=== PATIENT | male | born 1960 | race Caucasian/White ===

== ENCOUNTER 2018-04-09 11:51 | Inpatient (IN) ==
[2018-04-09] MEDS ORDERED: IPRATROPIUM/ALBUTEROL 3 ML AMPUL.NEB NEB ONE ×2 (12:01→14:08)
[2018-04-09] MEDS ORDERED: 0.9 % SODIUM CHLORIDE 1,000 ML IV ONE ×3 (12:07→19:32)
[2018-04-09] MEDS ORDERED: predniSONE 20 MG TABLET PO ONE (12:46)
--- NOTE | 2018-04-09 12:47 | Emergency Department Note ---
SOB HPI - General Chief Complaint: Shortness of Breath/Dyspnea Stated Complaint: SOB Time Seen by Provider: 04/09/18 12:01 Source: patient Mode of arrival: ambulatory Limitations: no limitations - History of Present Illness This patient returns to the emergency room feeling short of breath. He is here yesterday wheezing and had a treatment and workup that was unremarkable. He apparently is not on any prednisone that he knows of. No recent cough. He has been given a DuoNeb treatment here and feels better. - Related Data Previous Rx's Medication Instructions Recorded Albuterol Sulfate [Ventolin] 2 puff INH Q4-6HP PRN #1 inhaler 04/08/18 Tiotropium [place] [Spiriva 2 puff INH DAILY #1 each 04/08/18 Respimat] predniSONE [Prednisone] 10 mg PO DAILY #30 tab 04/08/18 Allergies Allergy/AdvReac Type Severity Reaction Status Date / Time No Known Drug Allergies Allergy Verified 01/07/18 11:59 Review of Systems All systems ED: reviewed and negative except as stated. Past Medical History - Past Medical History Medical history: Reports: asthma, COPD, other (Hepatitis C. Subacute dyskinesia due to medication (previous pill-rolling; lipsmacking currently). Chronic use of narcotic for therapeutic use.) Psychiatric history: Reports: anxiety, depression, schizophrenia, other ( Psychotic disorder with delusions. Is on chronic antipsychotic injection every 3 weeks.) Surgical history ED: Reports: no surgical history - Social History smoking status: Former smoker Alcohol use: Reports: Unknown Drug use: Reports: none Physical Exam Limitations: no limitations General appearance: alert, in no apparent distress Head: atraumatic Eye: Present: normal appearance ENT: normal exam Neck: Present: normal inspection Chest: Present: normal inspection Respiratory: Present: normal lung sounds bilaterally Cardiovascular: Present: regular rate, normal rhythm, normal heart sounds Abdominal: Present: soft. Absent: distention, tenderness Neurological: Present: alert Psychiatric: Present: normal affect, normal mood Skin: Present: warm, dry, intact Course Vital Signs Temperature 100.1 F H 04/09/18 11:53 Pulse Rate 103 H 04/09/18 11:53 Respiratory Rate 30 H 04/09/18 11:53 Blood Pressure 115/82 04/09/18 11:53 Pulse Oximetry (%) 90 04/09/18 11:53 Temperature 100.1 F H 04/09/18 11:53 Pulse Rate 88 04/09/18 15:39 Respiratory Rate 20 04/09/18 15:39 Blood Pressure 99/70 04/09/18 15:39 Pulse Oximetry (%) 90 04/09/18 15:39 Shortness of Breath/Dyspnea - MDM Narrative Medical decision making narrative: Chest x-ray only showed severe COPD but his white count was elevated he had a slight fever lactic acid was 3.0 oxygen saturation was anywhere from mid 80s to mid 90s off oxygen we did give him 2 DuoNeb treatments and prednisone. Have not done blood cultures and will start Levaquin and Rocephin and the patient will be admitted to the hospital. - Lab Data Lab results reviewed: Yes I reviewed the patient's lab results. Result diagrams: 04/09/18 12:07 04/09/18 12:07 Lab Results 04/09/18 04/09/18 04/09/18 Range/Units 12:07 12:07 12:07 WBC 13.1 H (4.5-11.0) K/mcL RBC 4.73 (4.50-5.90) M/mcL Hgb 14.9 (13.5-16.5) g/dL Hct 45.5 (41.0-55.0) % MCV 96.1 (80.0-100.0) fL MCH 31.5 (26.0-34.0) pg MCHC 32.8 (31.0-36.0) g/dL RDW 13.1 (11.5-14.5) % Plt Count 324 (140-440) K/mcL MPV 7.7 (7.4-10.4) fL Gran % 76.2 (38.0-78.0) % Lymph % (Auto) 13.6 L (15.5-49.0) % [place] % (Auto) 9.3 (1.0-12.0) % Eos % (Auto) 0.3 (0.0-7.0) % Baso % (Auto) 0.6 (0.0-2.0) % Gran # 10.0 H (1.8-8.0) K/mcL Lymph # (Auto) 1.8 (1.5-4.8) K/mcL [place] # (Auto) 1.2 H (0.1-0.9) K/mcL Eos # (Auto) 0 (0.0-0.7) K/mcL Baso # (Auto) 0.1 (0.0-0.3) K/mcL VBG Lactic Acid 3.0 H (0.5-2.2) mmol/L Sodium 141 (133-145) mmol/L Potassium 4.1 (3.3-5.1) mmol/L Chloride 99 (96-108) mmol/L Carbon Dioxide 28 (22-30) mmol/L Anion Gap 14.0 (8-16) BUN 12 (6-20) mg/dl Creatinine 0.8 (0.7-1.2) mg/dl GFR Calculation 99 Glucose 111 H (70-105) mg/dL Calcium 10.0 (8.6-10.4) mg/dl Total Bilirubin 0.5 (0.0-1.0) mg/dL AST 15 (0-37) U/l ALT 15 (0-40) U/l Alkaline Phosphatase 81 (39-117) U/L Total Protein 7.2 (5.9-8.4) gm/dL Albumin 4.4 (3.2-5.2) gm/dL Globulin 2.8 (2.2-3.7) gm/dL Albumin/Globulin Ratio 1.6 (1.0-2.3) - Radiology Data Radiology results reviewed: Yes I reviewed the patient's radiology results. Disposition Pt seen by FORK REPAIRER/PA only: No Clinical Impression: Acute exacerbation of chronic obstructive airways disease Disposition: Xfer As Inpt ([facility]) Condition: Good Referrals: Vianney Whitehead, EVELINE, [employer]ER[employer]ING MECHANIC [Primary Care Provider] - Time of Disposition: 15:47
[2018-04-09 12:48] LABS: Basophils # (Auto) 0.1 K/mcL (0.0-0.3); Basophils % (Auto) 0.6 % (0.0-2.0); Eosinophils # (Auto) 0 K/mcL (0.0-0.7); Eosinophils % (Auto) 0.3 % (0.0-7.0); Granulocytes % (Auto) 76.2 % (38.0-78.0); Lymphocytes # (Auto) 1.8 K/mcL (1.5-4.8); Lymphocytes % (Auto) 13.6 % (15.5-49.0); Mean Cell Volume 96.1 fL (80.0-100.0); Mean Corpuscular HGB Conc 32.8 g/dL (31.0-36.0); Mean Corpuscular Hemoglobin 31.5 pg (26.0-34.0); Monocytes # (Auto) 1.2 K/mcL (0.1-0.9); Monocytes % (Auto) 9.3 % (1.0-12.0); Platelet Count 324 K/mcL (140-440); RBC 4.73 M/mcL (4.50-5.90); Red Cell Distribution Width 13.1 % (11.5-14.5)
[2018-04-09 13:12] LABS: ALT/SGPT 15 U/l (0-40); Albumin 4.4 gm/dL (3.2-5.2); Albumin/Globulin Ratio 1.6 (1.0-2.3); Alkaline Phosphatase 81 U/L (39-117); Blood Urea Nitrogen 12 mg/dl (6-20)
--- NOTE | 2018-04-09 13:59 | XRay Report ---
CLINICAL INFORMATION: Shortness of breath COMPARISON: 04/08/2018 FINDINGS: Heart size, mediastinal pulmonary vessels are normal. Severe COPD changes and scattered scarring again noted. No infiltrates or other new pulmonary abnormalities. No effusions. Bones soft tissues normal IMPRESSION: Severe COPD changes - stable Interpreted and Authenticated by: Masood Weinberg 04/09/18
[2018-04-09] MEDS ORDERED: LACTATED RINGERS 1,000 ML IV ONE (14:28)
[2018-04-09] MEDS ORDERED: LEVOFLOXACIN 750 MG/150 ML BAG IV ONE (15:44)
[2018-04-09] MEDS ORDERED: cefTRIAXone 1 GM VIAL IV ONE (15:44)
--- NOTE | 2018-04-09 16:17 | Internal Med History&Physical ---
Medical - H&P: HPI Patient information: Note initiated : 04/09/18 at 4:04 pm Service Date, if different from initiated Date: [] Patient: Shwetha Means a 57 y/o M admitted on for Shortness of breath. Chief Complaint: [] History of present illness: Mr. Means is a 57 year old M with history of chronic obstructive pulmonary disease-asthma with multiple recent visits to the emergency room presents to the ER today for shortness of breath and wheezing. According to the patient this has been going on for the last 2 days. The patient was here yesterday and was advised to be admitted to the hospital he was treated with duo nebs and steroids however the patient declined admission. The patient today again comes in with shortness of breath and according to the ED note it seems that he did not take his steroids as he was supposed to. Not sure if he picked up his prescriptions for inhalers either. The patient notes shortness of breath is worse with activity associated with wheezing. He has some cough with light sputum production. He admits to feeling tired and fatigued but denies any acute fever or chills or rigors. The patient has had history of admissions to the hospital for asthma or COPD exacerbation he notes that he has also been in the ICU in the past. In the emergency room patient had a low-grade temperature 100.1, otherwise blood pressure was stable. He had increased oxygen needs needing 2 L of oxygen to maintain his oxygen saturation more than 90, patient had elevated lactic acid at 3.0. Chemistry was fine. Chest x-ray showed severe COPD. Patient was advised admission to the hospital for further management All systems: reviewed and no additional remarkable complaints except as stated ( 10 point ROS done as per HPI rest negative) Medical - H&P: PMH Medical history: Medical History (Last Reviewed 01/14/18 @ 18:40 by Vianney Whitehead, EVELINE, [employer]) Weight loss (Acute) Tobacco use (Chronic) Subacute dyskinesia due to drug (Chronic) Psychotic disorder with delusions (Chronic) Hepatitis C (Chronic) COPD (chronic obstructive pulmonary disease) (Chronic 10/16/14) Chronic use of opiate drugs therapeutic purposes (Chronic 03/26/13) Asthma (Chronic 07/30/12) Allergic rhinitis (Chronic) Reactive airway disease (Resolved) Pertinent family history: Family History (Last Reviewed 01/14/18 @ 18:40 by Vianney Whitehead, EVELINE, [employer]) Mother Malignant neoplasm of breast Atherosclerosis of coronary artery Essential hypertension Acute myocardial infarction Medical - H&P: Meds Home Medications Medication Instructions Recorded Confirmed Type Albuterol Sulfate [Ventolin] 2 puff INH Q4-6HP PRN #1 inhaler 04/08/18 04/09/18 Rx Tiotropium [place] [Spiriva 2 puff INH DAILY #1 each 04/08/18 04/09/18 Rx Respimat] predniSONE [Prednisone] 10 mg PO DAILY #30 tab 04/08/18 04/09/18 Rx Allergies Allergy/AdvReac Type Severity Reaction Status Date / Time No Known Drug Allergies Allergy Verified 01/07/18 11:59 Medical - H&P: Exam - Constitutional Vitals: Temp Pulse Resp BP Pulse Ox 100.1 F H 88 20 99/70 90 04/09/18 11:53 04/09/18 15:39 04/09/18 15:39 04/09/18 15:39 04/09/18 15:39 Exam: GENERAL: The patient is thin poorly kept individual, not in distress, alert oriented 3. VITAL SIGNS: Reviewed and as noted elsewhere. HEENT: Head is normocephalic and atraumatic. Extraocular muscles are intact. Pupils are equal, round, and reactive to light. Nares appeared normal. Mouth appears any without lesions. Mucous membranes are dry . NECK: Normal to inspection, Supple, No lymphadenopathy or thyromegaly. LUNGS: Air entry equal on both sides, decreased air entry bilaterally, mild expiratory wheezing noted. No crackles. Patient does not show any signs of respiratory distress no accessory muscle use. Patient is able to speak full sentences. HEART: Regular rate and rhythm normal, S1 and S2 heard, no Gallop, S3 or Rub Noted, No Gross murmur heard. Distant heart sounds ABDOMEN: Soft, nontender, and nondistended. Positive bowel sounds. No hepatosplenomegaly was noted. Scaphoid abdomen EXTREMITIES: No cyanosis, mild clubbing present no rash, lesions or edema. NEUROLOGIC: Cranial nerves II through XII are grossly intact. Motor and Sensory System Grossly Intact PSYCHIATRIC: Flat affect, poorly kept individual. SKIN: No ulceration or wounds noted, No jaundice, No rash noted. Medical - H&P: Reslt - Labs CBC & Chem 7: 04/09/18 12:07 04/09/18 12:07 Labs: Short CBC 04/09/18 Range/Units 12:07 WBC 13.1 H (4.5-11.0) K/mcL Hgb 14.9 (13.5-16.5) g/dL Hct 45.5 (41.0-55.0) % Plt Count 324 (140-440) K/mcL BMP 04/09/18 12:07 Sodium 141 Potassium 4.1 Chloride 99 Carbon Dioxide 28 BUN 12 Creatinine 0.8 Glucose 111 H Calcium 10.0 Liver Function 04/09/18 Range/Units 12:07 Total Bilirubin 0.5 (0.0-1.0) mg/dL AST 15 (0-37) U/l ALT 15 (0-40) U/l Alkaline Phosphatase 81 (39-117) U/L Albumin 4.4 (3.2-5.2) gm/dL Medical - H&P: A/P - Narrative A/P Narrative: A/P Acute copd exacerbation Acute hypoxic Respiratory Failure Acute bronchitis Lactic acidosis Sepsis/ SIRS Psychiatric disorder hepatitis C Plan Admit as obs to tele IV fluids Trend lactic acid, Steroids, adn duonebs, abx coverage by levoflox continue home meds DVT hep sq Diet regular Full code. Social History - Social History caregiver/support person: Yes household members: alone housing: house lives independently: Yes marital status: single occupational status: disabled - Dietary Habits well-balanced diet: about half the time during the past year weight has: remained stable - Exercise physical activity: walking - Tobacco smoking status: Former smoker quit status: not considering quitting counseling given: provider counseling - Tobacco Type tobacco type: cigarettes - Cigarette Details per day: 4 - Alcohol alcohol intake frequency: does not drink - Substance use substance use type: does not use - Melissa/Amish melissa/holiness: Taoism - Home Safety working smoke detector in home: Yes
[2018-04-09] MEDS ORDERED: IOPAMIDOL 100 ML BOTTLE IV ONE (16:41)
[2018-04-09] MEDS ORDERED: ONDANSETRON 4 MG/2 ML VIAL IV PRN (16:46)
[2018-04-09] MEDS ORDERED: oxyCODONE/APAP 5/325MG TABLET PO PRN (16:46)
[2018-04-09] MEDS ORDERED: NALOXONE HCL 0.4 MG/ML VIAL IV PRN (16:46)
[2018-04-09] MEDS ORDERED: LEVOFLOXACIN 500 MG/100 ML BAG IV SCH (16:46)
[2018-04-09] MEDS ORDERED: ACETAMINOPHEN 325 MG TABLET PO PRN (16:46)
[2018-04-09 17:07] LABS: Appearance,Urine HAZY; Bilirubin,Urine NEG (NEG); Color,Urine YELLOW; Glucose,Urine (UA) NEGATIVE (NEG); Leukocyte Esterase,Urine NEG /uL (NEG); Protein,Urine NEG (NEG); Specific Gravity,Urine 1.024 (1.000-1.035); Urine Blood NEG mg/dL (<0.03); Urobilinogen,Urine NEG (NEG)
[2018-04-09] MEDS: 0.9 % SODIUM CHLORIDE 1,000 ML IV SCH ×2 (17:11→23:52)
[2018-04-09] MEDS: methylPREDNISolone SOD SUCC 125 MG/2 ML VIAL IV SCH ×2 (17:17→23:17)
[2018-04-09] MEDS: IPRATROPIUM/ALBUTEROL 3 ML AMPUL.NEB NEB SCH ×2 (19:27→22:44)
[2018-04-09] MEDS: FAMOTIDINE 20 MG TABLET PO SCH (20:16)
[2018-04-09] MEDS: HEPARIN 5,000 UNIT/ML VIAL SQ SCH (20:16)
[2018-04-09] MEDS: THIAMINE 100 MG in 0.9 % SODIUM CHLORIDE 50 ML IV SCH (21:04)
[2018-04-09] MEDS: 0.9 % SODIUM CHLORIDE 10 ML SYRINGE IV SCH (23:14)
[2018-04-10] MEDS: IPRATROPIUM/ALBUTEROL 3 ML AMPUL.NEB NEB SCH ×6 (03:04→23:11)
[2018-04-10] MEDS: 0.9 % SODIUM CHLORIDE 1,000 ML IV SCH ×3 (03:05→13:00)
[2018-04-10] MEDS: 0.9 % SODIUM CHLORIDE 10 ML SYRINGE IV SCH ×3 (06:01→21:58)
[2018-04-10] MEDS: methylPREDNISolone SOD SUCC 125 MG/2 ML VIAL IV SCH ×3 (06:01→22:01)
[2018-04-10 06:04] LABS: Basophils # (Auto) 0 K/mcL (0.0-0.3); Basophils % (Auto) 0 % (0.0-2.0); Eosinophils # (Auto) 0 K/mcL (0.0-0.7); Eosinophils % (Auto) 0 % (0.0-7.0); Granulocytes % (Auto) 92.1 % (38.0-78.0); Lymphocytes # (Auto) 0.5 K/mcL (1.5-4.8); Lymphocytes % (Auto) 5.9 % (15.5-49.0); Mean Cell Volume 97.8 fL (80.0-100.0); Mean Corpuscular HGB Conc 32.9 g/dL (31.0-36.0); Mean Corpuscular Hemoglobin 32.2 pg (26.0-34.0); Monocytes # (Auto) 0.2 K/mcL (0.1-0.9); Platelet Count 250 K/mcL (140-440); RBC 3.88 M/mcL (4.50-5.90); Red Cell Distribution Width 13.2 % (11.5-14.5)
--- NOTE | 2018-04-10 09:12 | Internal Med Progress Note ---
Medical - PN: Subj Patient information: Note initiated : 04/10/18 at 9:12 am Service Date, if different from initiated Date: [] Patient: Shwetha Means a 57 y/o M admitted on 04/09/18 for Shortness of breath. Chief Complaint: [] Interval history: Mr. Means is a 57 year old M with history of chronic obstructive pulmonary disease-asthma with multiple recent visits to the emergency room presents to the ER today for shortness of breath and wheezing. According to the patient this has been going on for the last 2 days. The patient was here yesterday and was advised to be admitted to the hospital he was treated with duo nebs and steroids however the patient declined admission. The patient today again comes in with shortness of breath and according to the ED note it seems that he did not take his steroids as he was supposed to. Not sure if he picked up his prescriptions for inhalers either. The patient notes shortness of breath is worse with activity associated with wheezing. He has some cough with light sputum production. He admits to feeling tired and fatigued but denies any acute fever or chills or rigors. The patient has had history of admissions to the hospital for asthma or COPD exacerbation he notes that he has also been in the ICU in the past. In the emergency room patient had a low-grade temperature 100.1, otherwise blood pressure was stable. He had increased oxygen needs needing 2 L of oxygen to maintain his oxygen saturation more than 90, patient had elevated lactic acid at 3.0. Chemistry was fine. Chest x-ray showed severe COPD. Patient was advised admission to the hospital for further management 8/ Pt seen examined, no acute overnight events, fever resolved, lactic acid is persistent, on IV fluids, Lactate is better today Given persistent lactic acid, will switch the patient to inpatient status, anticipate 2 mn stay Pt still on oxygen has wheezing today on exam Will get CT Abdomen and pelvis to ensure no intraabdominal source for lactic acid, given CXR is negative for infection. Patient will continue on levofloxacin for now. Microbiology negative so far. Pertinent ROS: Denies headache, dizziness Denies chest pain, palpitations improving shortness of breath, no cough reported today Denies abdominal pain, nausea or vomiting. - Constitutional Vitals: Vital Signs Temp Pulse Resp BP Pulse Ox 99.0 F 86 22 113/73 98 04/10/18 07:29 04/10/18 07:36 04/10/18 07:36 04/10/18 07:29 04/10/18 07:29 Period Temp Pulse Resp BP Sys/Dugan Pulse Ox Last 24 Hr 98.7 F-100.1 F 79-104 16-30 95-248/67-212 86-100 Intake and Output 04/09/18 04/10/18 04/10/18 21:59 05:59 13:59 Intake Total 1240 / 1240 1079 / 1079 2150 / 2150 Output Total 1075 / 1075 625 / 625 Balance 1240 / 1240 4 / 4 1525 / 1525 Weight 100 lb 8 oz Intake & Output: Intake & Output 04/09/18 04/10/18 04/10/18 21:59 05:59 13:59 Intake Total 1240 / 1240 1079 / 1079 2150 / 2150 Output Total 1075 / 1075 625 / 625 Balance 1240 / 1240 4 / 4 1525 / 1525 Weight 100 lb 8 oz Intake: IV 1000 / 1000 719 / 719 2150 / 2150 Sodium Chloride 0.9% 1,000 ml @ 668 / 668 100 mls/hr IV .Q10H [facility] Rx#: [id number] Lactated Ringers 1,000 ml @ 1000 / 1000 Wide Open IV BOLUS ONE Rx#: [id number] Vitamin B1 100 mg In Sodium 51 / 51 Chloride 0.9% 50 ml @ 50 mls/hr IV DAILY [facility] Rx#:[id number] Oral 240 / 240 360 / 360 Output: Void Amount 1075 / 1075 625 / 625 Other: Meal egg salad sandwich PB and crackers Percent of Meal Consumed 100% 100% Feeding Ability Independent Independent Exam: Constitutional; Afebrile, cooperative, alert, not in distress. think individual , Eyes- No icterus, No periorbital swelling Ears- Ext ear normal, hearing normal to conversation. Neck- Midline trachea, supple Respiratory system: Air Entry equal on both sides, no crackles, but edy wheezing apparent, poor air entry on both sides. no accessory muscle use, speaking full sentences. CVS- Rate rhythm regular, S1,S2 heard, no gallop, no rub. Abdomen- Soft nontender abdomen, no organomegaly, no tenderness, no guarding or rigidity, COMMONWEALTH ATTORNEY- AOOx3, moving all extremities, no gross focal deficit noted. tremors in both hands, Psych, flat affect. Medical - PN: Obj Da - Labs CBC & Chem 7: 04/10/18 03:30 04/09/18 12:07 Labs: Abnormal Lab Results 04/10/18 04/10/18 04/10/18 03:30 03:30 03:30 WBC RBC 3.88 L Hgb 12.5 L Hct 37.9 L Gran % 92.1 H Lymph % (Auto) 5.9 L Gran # 8.1 H Lymph # (Auto) 0.5 L [place] # (Auto) PT 14.9 H INR 1.2 H VBG Lactic Acid 2.8 H Glucose 04/09/18 04/09/18 04/09/18 18:12 12:07 12:07 WBC RBC Hgb Hct Gran % Lymph % (Auto) Gran # Lymph # (Auto) [place] # (Auto) PT INR VBG Lactic Acid 3.6 H 3.0 H Glucose 111 H 04/09/18 12:07 WBC 13.1 H RBC Hgb Hct Gran % Lymph % (Auto) 13.6 L Gran # 10.0 H Lymph # (Auto) [place] # (Auto) 1.2 H PT INR VBG Lactic Acid Glucose Meds: Medications Acetaminophen (Tylenol) 650 mg PO Q6HP PRN PRN Reason: PAIN/FEVER > 101 Albuterol/Ipratropium (Duoneb) 3 ml NEB Q4HRT [facility] Last Admin: 04/10/18 07:35 Dose: 3 ml Famotidine (Pepcid) 20 mg PO BID [facility] Last Admin: 04/09/18 20:16 Dose: 20 mg Heparin Sodium (Porcine) (Heparin) 5,000 unit SQ Q12 [facility] Last Admin: 04/09/18 20:16 Dose: 5,000 unit Sodium Chloride (Sodium Chloride 0.9%) 1,000 mls @ 100 mls/hr IV .Q10H [facility] Stop: 04/10/18 12:45 Last Admin: 04/10/18 03:05 Dose: Not Given Levofloxacin (Levaquin) 500 mg in 100 mls @ 100 mls/hr IV DAILY [facility] Thiamine HCl 100 mg/ Sodium (Chloride) 51 mls @ 50 mls/hr IV DAILY [facility] Stop: 08/03/18 10:02 Last Infusion: 04/09/18 22:06 Dose: Infused Methylprednisolone Sodium Succinate (Solu-Medrol) 62.5 mg IV Q8 [facility] Last Admin: 04/10/18 06:01 Dose: 62.5 mg Naloxone HCl (Narcan) 0.1 mg IV Q2MIN PRN PRN Reason: Opiate Reversal Ondansetron HCl (Zofran) 4 mg IV Q4HP PRN PRN Reason: Nausea And Vomiting Oxycodone/Acetaminophen (Percocet 5-325 Mg) 1 tab PO Q4HP PRN PRN Reason: Severe Pain Sodium Chloride (Saline Flush) 10 ml IV Q8 [facility] Last Admin: 04/10/18 06:01 Dose: Not Given Medical - PN: A/P - Time Spent With Patient Total time spent is greater than 50% in coordination of care (as documented) at patient's floor/unit and/or counseling patient: - Narrative A/P Narrative: A/P Acute copd exacerbation- no pna on x ray, severe emphysema, On IV steroids, duonebs, and levofloxacin, Day 2 today. Acute hypoxic Respiratory Failure- not on oxygen at baseline , on 2 L oxygen via nasal canula, try to wean off as tolerated. Acute bronchitis- On levofloxacin for same. Lactic acidosis / SIRS- etiology? bronchitis? vs Lactic acidema due to nebulizer treatments b2 agonism, the patient is on IV fluids, clinically is well perfused. Will get CT Abdomen to ensure no intra abdominal pathology to explain the lactic acid. Exam is benign, but pt does have psych history which makes history a bit unreliable. Psychiatric disorder- schizophrenia, follows with Dr Cadena, fluphenazine IM and benztropine. The tremors likely due to antipsychotic medication. hepatitis C- h/o same, lft wnl DVT hep sq Diet regular Full code. Medical - PN: Qual - Stroke Symptom Onset Unknown: No - VTE Deep Vein Thrombosis/Pulmonary Embolism Present on Admission: No
--- NOTE | 2018-04-10 09:13 | Cat Scan Report ---
CLINICAL INFORMATION: Lactic acidosis and abdominal 6pain COMPARISON: 05/29/2016 chest abdomen and pelvic CT TECHNIQUE: Following enteric contrast, 80 cc of Isovue-300 were injected intravenously, and 60 seconds later, 0.625 mm helical slices were obtained from the mid heart through the subtrochanteric regions. Following reconstruction, 2.5 mm sagittal, coronal and axial reformatted images were processed and reviewed at bone, lung and soft tissue windows. Five minutes later, 0.625 mm helical slices were obtained from the mid heart through the kidneys and viewed at soft tissue windows.The exam was performed using radiation dose optimization techniques including, but not limited to, automated exposure control, adjustment of the mA and/or kV according to patient size and use of iterative reconstruction technique. FINDINGS: Lung bases show severe emphysema changes featuring large bullae replacing most of the lower lobe parenchyma and scattered scarring. This is unchanged. No infiltrates or effusions. The visualized heart is grossly normal. Images through the abdomen show a stable 11 mm cyst in the lateral segment left hepatic lobe. Liver is normal in size configuration and demonstrate moderate periportal edema - a new finding from previous CT. Gallbladder is contracted, but otherwise normal. Intrahepatic, common hepatic and common bile ducts are normal caliber: CBD is 6 mm. Both kidneys, adrenal glands, spleen, pancreas and aorta, including aortic branches, are normal in size, configuration and attenuation without focal lesion. A small amount of ascites has developed within the abdomen and pelvis since previous study.There is no adenopathy or free air. The stomach, small/large bowel and appendix are all grossly normal. Images through the pelvis show mild prostate enlargement - 5.4 cm in transverse dimension. Urinary bladder shows equivocal diffuse wall thickening. No focal bladder lesions. Bone windows show no osseous abnormality. IMPRESSION: 1. Moderate periportal edema and mild ascites in the abdomen and pelvis - new from the [address] Periportal edema typically indicates primary hepatocellular disease (hepatitis, early cirrhosis etc.) It could also indicate congestive hepatopathy in the presence of congestive heart failure or elevated right heart pressures - no CT support for CHF, however. 2. Severe emphysema - stable 3. Mild prostate enlargement - slightly increased prior study Interpreted and Authenticated by: Masood Weinberg 04/10/18
[2018-04-10] MEDS ORDERED: BENZTROPINE 1 MG TABLET PO PRN (09:25)
[2018-04-10] MEDS: THIAMINE 100 MG in 0.9 % SODIUM CHLORIDE 50 ML IV SCH (09:57)
[2018-04-10] MEDS: FAMOTIDINE 20 MG TABLET PO SCH ×3 (09:57→20:21)
[2018-04-10] MEDS: LEVOFLOXACIN 500 MG/100 ML BAG IV SCH (09:57)
[2018-04-10] MEDS: HEPARIN 5,000 UNIT/ML VIAL SQ SCH ×2 (09:57→20:25)
--- NOTE | 2018-04-10 18:09 | XRay Report ---
CLINICAL INFORMATION: Aspiration COMPARISON: 04/09/2018 FINDINGS: Cardiomediastinal silhouette and pulmonary vessels are normal. Moderate COPD changes appreciated. Moderate, yet vague peribronchovascular infiltrates in developed in both upper and lower lobes. No effusions. IMPRESSION: Severe COPD. Moderate, yet vague peribronchovascular infiltrates developing in both upper and lower lobes - more prominent on the left. Aspiration pneumonia is likely Interpreted and Authenticated by: Masood Weinberg 04/10/18
[2018-04-10] MEDS: FLUTICASONE/SALMETEROL 500/50 INHALER #14 INH SCH (20:26)
[2018-04-11] MEDS: IPRATROPIUM/ALBUTEROL 3 ML AMPUL.NEB NEB SCH ×6 (03:55→23:54)
[2018-04-11 05:16] LABS: Basophils # (Auto) 0 K/mcL (0.0-0.3); Basophils % (Auto) 0.1 % (0.0-2.0); Eosinophils # (Auto) 0 K/mcL (0.0-0.7); Eosinophils % (Auto) 0 % (0.0-7.0); Granulocytes % (Auto) 94.9 % (38.0-78.0); Lymphocytes # (Auto) 0.4 K/mcL (1.5-4.8); Lymphocytes % (Auto) 4.7 % (15.5-49.0); Mean Cell Volume 96.8 fL (80.0-100.0); Mean Corpuscular HGB Conc 33.6 g/dL (31.0-36.0); Mean Corpuscular Hemoglobin 32.5 pg (26.0-34.0); Monocytes # (Auto) 0 K/mcL (0.1-0.9); Monocytes % (Auto) 0.3 % (1.0-12.0); Platelet Count 253 K/mcL (140-440); RBC 3.79 M/mcL (4.50-5.90); Red Cell Distribution Width 13.1 % (11.5-14.5)
[2018-04-11] MEDS: methylPREDNISolone SOD SUCC 125 MG/2 ML VIAL IV SCH ×3 (05:31→20:21)
[2018-04-11] MEDS: 0.9 % SODIUM CHLORIDE 10 ML SYRINGE IV SCH ×3 (05:31→20:22)
[2018-04-11] MEDS: FLUTICASONE/SALMETEROL 500/50 INHALER #14 INH SCH (07:26)
[2018-04-11] MEDS ORDERED: traZODone HCL 50 MG TABLET PO SCH (09:00)
[2018-04-11] MEDS: HEPARIN 5,000 UNIT/ML VIAL SQ SCH ×2 (09:55→20:21)
[2018-04-11] MEDS: LEVOFLOXACIN 500 MG/100 ML BAG IV SCH (09:55)
[2018-04-11] MEDS: THIAMINE 100 MG in 0.9 % SODIUM CHLORIDE 50 ML IV SCH (09:56)
[2018-04-11] MEDS: FAMOTIDINE 20 MG TABLET PO SCH ×2 (09:57→20:22)
[2018-04-11] MEDS ORDERED: LORazepam 0.5 MG TABLET PO ONE (11:17)
--- NOTE | 2018-04-11 19:45 | Internal Med Progress Note ---
Medical - PN: Subj Patient information: Note initiated : 04/11/18 at 7:43 pm Service Date, if different from initiated Date: [] Patient: Shwetha Means a 58 y/o M admitted on 04/10/18 for Shortness of breath. Chief Complaint: f/u COPD Interval history: Mr. Means is a 57 year old M with history of chronic obstructive pulmonary disease-asthma with multiple recent visits to the emergency room presents to the ER today for shortness of breath and wheezing. According to the patient this has been going on for the last 2 days. The patient was here yesterday and was advised to be admitted to the hospital he was treated with duo nebs and steroids however the patient declined admission. The patient today again comes in with shortness of breath and according to the ED note it seems that he did not take his steroids as he was supposed to. Not sure if he picked up his prescriptions for inhalers either. The patient notes shortness of breath is worse with activity associated with wheezing. He has some cough with light sputum production. He admits to feeling tired and fatigued but denies any acute fever or chills or rigors. The patient has had history of admissions to the hospital for asthma or COPD exacerbation he notes that he has also been in the ICU in the past. In the emergency room patient had a low-grade temperature 100.1, otherwise blood pressure was stable. He had increased oxygen needs needing 2 L of oxygen to maintain his oxygen saturation more than 90, patient had elevated lactic acid at 3.0. Chemistry was fine. Chest x-ray showed severe COPD. Patient was advised admission to the hospital for further management 04/10 Pt seen examined, no acute overnight events, fever resolved, lactic acid is persistent, on IV fluids, Lactate is better today Given persistent lactic acid, will switch the patient to inpatient status, anticipate 2 mn stay Pt still on oxygen has wheezing today on exam Will get CT Abdomen and pelvis to ensure no intraabdominal source for lactic acid, given CXR is negative for infection. Patient will continue on levofloxacin for now. Microbiology negative so far. 04/11 Had episode of tachypnea and tachycardia today. Seemed to be quite anxious. Improved after a single dose of 0.5 mg lorazepam. When I see the patient, no specific complaints. Lactic acid was elevated last evening, received further 1 L bolus, back down to 3.0 today. Otherwise white counts normalize, no other indication of endorgan damage. Pertinent ROS: Remains a little dyspneic, denies fever, some cough, minimal sputum. No chest pain. No nausea, no vomiting - Constitutional Vitals: Vital Signs Temp Pulse Resp BP Pulse Ox 97.3 F 97 H 18 121/91 96 04/11/18 17:17 04/11/18 19:15 04/11/18 19:15 04/11/18 15:24 04/11/18 19:15 Period Temp Pulse Resp BP Sys/Dugan Pulse Ox Last 24 Hr 97.3 F-98.8 F 79-98 16-32 86-181/68-101 77-100 Intake and Output 04/11/18 04/11/18 04/11/18 05:59 13:59 21:59 Intake Total 511 / 511 440 / 440 Output Total 1450 / 1450 600 / 600 Balance -1450 / -1450 511 / 511 -160 / -160 Intake & Output: Intake & Output 04/11/18 04/11/18 04/11/18 05:59 13:59 21:59 Intake Total 511 / 511 440 / 440 Output Total 1450 / 1450 600 / 600 Balance -1450 / -1450 511 / 511 -160 / -160 Intake: IV 151 / 151 Oral 360 / 360 440 / 440 Output: Void Amount 1450 / 1450 600 / 600 Other: Meal Breakfast Dinner Percent of Meal Consumed 100% 100% Feeding Ability Independent Independent # Voids 1 # Bowel Movements 1 Exam: General: Thin/mildly cachectic male in bed, no acute distress Chest: Diminished aeration throughout without wheezes or rhonchi. Respirations are unlabored. Cardiovascular: Regular, not tachycardic, no peripheral edema Abdomen: Soft, nontender Neuro: Resting tremor, worsens a bit with intentional movement. He is alert, oriented to being in the hospital, to himself. Medical - PN: Obj Da - Labs CBC & Chem 7: 04/11/18 04:03 04/09/18 12:07 Labs: Abnormal Lab Results 04/11/18 04/11/18 04/10/18 04:03 04:03 16:54 WBC RBC 3.79 L Hgb 12.3 L Hct 36.7 L Gran % 94.9 H Lymph % (Auto) 4.7 L [place] % (Auto) 0.3 L Gran # Lymph # (Auto) 0.4 L [place] # (Auto) 0 L PT INR VBG Lactic Acid 3.0 H 4.6 H* Glucose 04/10/18 04/10/18 04/10/18 09:35 03:30 03:30 WBC RBC Hgb Hct Gran % Lymph % (Auto) [place] % (Auto) Gran # Lymph # (Auto) [place] # (Auto) PT 14.9 H INR 1.2 H VBG Lactic Acid 2.7 H 2.8 H Glucose 04/10/18 04/09/18 04/09/18 03:30 18:12 12:07 WBC RBC 3.88 L Hgb 12.5 L Hct 37.9 L Gran % 92.1 H Lymph % (Auto) 5.9 L [place] % (Auto) Gran # 8.1 H Lymph # (Auto) 0.5 L [place] # (Auto) PT INR VBG Lactic Acid 3.6 H 3.0 H Glucose 04/09/18 04/09/18 12:07 12:07 WBC 13.1 H RBC Hgb Hct Gran % Lymph % (Auto) 13.6 L [place] % (Auto) Gran # 10.0 H Lymph # (Auto) [place] # (Auto) 1.2 H PT INR VBG Lactic Acid Glucose 111 H Microbiology 04/09/18 16:12 Blood Culture - Preliminary Blood 04/09/18 16:19 Blood Culture - Preliminary Blood Meds: Medications Acetaminophen (Tylenol) 650 mg PO Q6HP PRN PRN Reason: PAIN/FEVER > 101 Albuterol/Ipratropium (Duoneb) 3 ml NEB Q4HRT [facility] Last Admin: 04/11/18 19:10 Dose: 3 ml Benztropine Mesylate (Cogentin) 1 - 2 mg PO DAILYP PRN PRN Reason: tremors Famotidine (Pepcid) 20 mg PO BID [facility] Last Admin: 04/11/18 09:57 Dose: 20 mg Heparin Sodium (Porcine) (Heparin) 5,000 unit SQ Q12 [facility] Last Admin: 04/11/18 09:55 Dose: 5,000 unit Levofloxacin (Levaquin) 500 mg in 100 mls @ 100 mls/hr IV DAILY [facility] Last Infusion: 04/11/18 11:00 Dose: Infused Methylprednisolone Sodium Succinate (Solu-Medrol) 62.5 mg IV Q8 [facility] Last Admin: 04/11/18 14:36 Dose: 62.5 mg Naloxone HCl (Narcan) 0.1 mg IV Q2MIN PRN PRN Reason: Opiate Reversal Fluphenazine Hcl 5 (Mg Tab) 3 dose PO DAILY [facility] Last Admin: 04/11/18 09:55 Dose: 3 dose Ondansetron HCl (Zofran) 4 mg IV Q4HP PRN PRN Reason: Nausea And Vomiting Oxycodone/Acetaminophen (Percocet 5-325 Mg) 1 tab PO Q4HP PRN PRN Reason: Severe Pain Tiotropium [place] [ Spiriva Respimat] Inhaler 2 dose INH DAILY [facility] Last Admin: 04/11/18 07:28 Dose: Not Given Fluticasone/Salmeterol (Advair 500-50 Diskus) 1 puff INH BID [facility] Last Admin: 04/11/18 07:26 Dose: Not Given Sodium Chloride (Saline Flush) 10 ml IV Q8 [facility] Last Admin: 04/11/18 14:36 Dose: 10 ml Trazodone HCl (Desyrel) 50 mg PO HS [facility] - Imaging and cardiology CT scan - abdomen Status: image reviewed by me Additional comments: MPRESSION: 1. Moderate periportal edema and mild ascites in the abdomen and pelvis - new from the [address] Periportal edema typically indicates primary hepatocellular disease (hepatitis, early cirrhosis etc.) It could also indicate congestive hepatopathy in the presence of congestive heart failure or elevated right heart pressures - no CT support for CHF, however. 2. Severe emphysema - stable 3. Mild prostate enlargement - slightly increased prior study Medical - PN: A/P - Narrative A/P Narrative: Acute COPD exacerbation- no pneumonia on x ray; underlying severe emphysema. On IV steroids, duonebs, and levofloxacin, day 3. Acute hypoxic Respiratory Failure- not on oxygen at baseline , on 2 L oxygen via nasal canula, wean as tolerated. Acute bronchitis- On levofloxacin for same. Lactic acidosis / SIRS- etiology? bronchitis? vs Lactic acidemia due to nebulizer treatments b2 agonist. Query whether decreased metabolism as well. CT of the abdomen and pelvis without significant findings to explain lactic acidosis. Exam remains benign. Will continue to follow. Psychiatric disorder- schizophrenia, follows with Dr Cadena, fluphenazine IM and benztropine. The tremors likely due to antipsychotic medication. hepatitis C- h/o same, lft wnl DVT hep sq Diet regular Full code. Medical - PN: Qual - Stroke Symptom Onset Unknown: No - VTE Deep Vein Thrombosis/Pulmonary Embolism Present on Admission: No
[2018-04-11] MEDS: traZODone HCL 50 MG TABLET PO SCH (20:22)
[2018-04-12] MEDS: FLUTICASONE/SALMETEROL 500/50 INHALER #14 INH SCH ×3 (00:39→21:31)
[2018-04-12] MEDS: IPRATROPIUM/ALBUTEROL 3 ML AMPUL.NEB NEB SCH ×6 (03:20→22:41)
[2018-04-12] MEDS: methylPREDNISolone SOD SUCC 125 MG/2 ML VIAL IV SCH (05:35)
[2018-04-12] MEDS: 0.9 % SODIUM CHLORIDE 10 ML SYRINGE IV SCH ×3 (05:35→22:45)
[2018-04-12 06:17] LABS: Basophils # (Auto) 0 K/mcL (0.0-0.3); Basophils % (Auto) 0.3 % (0.0-2.0); Eosinophils # (Auto) 0 K/mcL (0.0-0.7); Eosinophils % (Auto) 0 % (0.0-7.0); Granulocytes % (Auto) 93.9 % (38.0-78.0); Lymphocytes # (Auto) 0.3 K/mcL (1.5-4.8); Lymphocytes % (Auto) 3.6 % (15.5-49.0); Mean Cell Volume 96.8 fL (80.0-100.0); Mean Corpuscular HGB Conc 33.6 g/dL (31.0-36.0); Mean Corpuscular Hemoglobin 32.5 pg (26.0-34.0); Monocytes # (Auto) 0.2 K/mcL (0.1-0.9); Monocytes % (Auto) 2.2 % (1.0-12.0); Platelet Count 251 K/mcL (140-440); RBC 3.83 M/mcL (4.50-5.90); Red Cell Distribution Width 13.3 % (11.5-14.5)
[2018-04-12 06:49] LABS: Blood Urea Nitrogen 16 mg/dl (6-20)
[2018-04-12] MEDS: LORazepam 1 MG TABLET PO PRN ×2 (09:07→15:18)
[2018-04-12] MEDS: FAMOTIDINE 20 MG TABLET PO SCH ×2 (09:07→21:30)
[2018-04-12] MEDS: HEPARIN 5,000 UNIT/ML VIAL SQ SCH ×2 (09:08→21:30)
[2018-04-12] MEDS: LEVOFLOXACIN 500 MG/100 ML BAG IV SCH (09:08)
--- NOTE | 2018-04-12 09:23 | Internal Med Progress Note ---
Medical - PN: Subj Patient information: Note initiated : 04/12/18 at 9:20 am Service Date, if different from initiated Date: [] Patient: Shwetha Means a 58 y/o M admitted on 04/10/18 for Shortness of breath. Chief Complaint: f/u COPD Interval history: Mr. Means is a 57 year old M with history of chronic obstructive pulmonary disease-asthma with multiple recent visits to the emergency room presents to the ER today for shortness of breath and wheezing. According to the patient this has been going on for the last 2 days. The patient was here yesterday and was advised to be admitted to the hospital he was treated with duo nebs and steroids however the patient declined admission. The patient today again comes in with shortness of breath and according to the ED note it seems that he did not take his steroids as he was supposed to. Not sure if he picked up his prescriptions for inhalers either. The patient notes shortness of breath is worse with activity associated with wheezing. He has some cough with light sputum production. He admits to feeling tired and fatigued but denies any acute fever or chills or rigors. The patient has had history of admissions to the hospital for asthma or COPD exacerbation he notes that he has also been in the ICU in the past. In the emergency room patient had a low-grade temperature 100.1, otherwise blood pressure was stable. He had increased oxygen needs needing 2 L of oxygen to maintain his oxygen saturation more than 90, patient had elevated lactic acid at 3.0. Chemistry was fine. Chest x-ray showed severe COPD. Patient was advised admission to the hospital for further management 04/10 Pt seen examined, no acute overnight events, fever resolved, lactic acid is persistent, on IV fluids, Lactate is better today Given persistent lactic acid, will switch the patient to inpatient status, anticipate 2 mn stay Pt still on oxygen has wheezing today on exam Will get CT Abdomen and pelvis to ensure no intraabdominal source for lactic acid, given CXR is negative for infection. Patient will continue on levofloxacin for now. Microbiology negative so far. 04/11 Had episode of tachypnea and tachycardia today. Seemed to be quite anxious. Improved after a single dose of 0.5 mg lorazepam. When I see the patient, no specific complaints. Lactic acid was elevated last evening, received further 1 L bolus, back down to 3.0 today. Otherwise white counts normalize, no other indication of endorgan damage. 8/ Repeat episode of anxiety, then dyspnea/desaturation and associated tachycardia and elevated BP. Resolved after lorazepam. Exam w/o significant wheezing. Lactate has normalized. Pertinent ROS: No fever, chills, nausea, chest pain. No dyspnea when I see patient. - Constitutional Vitals: Vital Signs Temp Pulse Resp BP Pulse Ox 97.5 F 85 24 H 124/88 100 04/12/18 08:00 04/12/18 07:33 04/12/18 08:00 04/12/18 08:00 04/12/18 08:00 Period Temp Pulse Resp BP Sys/Dugan Pulse Ox Last 24 Hr 97.3 F-98.8 F 85-98 18-32 88-181/64-98 77-100 Intake and Output 04/11/18 04/12/18 04/12/18 21:59 05:59 13:59 Intake Total 440 / 440 360 / 360 220 / 220 Output Total 700 / 700 250 / 250 550 / 550 Balance -260 / -260 110 / 110 -330 / -330 Weight 107 lb 14.4 oz Intake & Output: Intake & Output 04/11/18 04/12/18 04/12/18 21:59 05:59 13:59 Intake Total 440 / 440 360 / 360 220 / 220 Output Total 700 / 700 250 / 250 550 / 550 Balance -260 / -260 110 / 110 -330 / -330 Weight 107 lb 14.4 oz Intake: Oral 440 / 440 220 / 220 GI Tube Flush 360 / 360 Output: Void Amount 700 / 700 250 / 250 550 / 550 Other: Meal Dinner Tuna sandwich Breakfast Percent of Meal Consumed 100% 100% 100% Feeding Ability Independent Independent Independent # Voids 1 General appearance: average body habitus, cooperative - Head Head exam: Present: atraumatic, normocephalic - Eye Eye exam: Present: normal appearance. Absent: scleral icterus - ENT ENT exam: Present: mucous membranes moist - Respiratory Respiratory exam: Present: decreased breath sounds (throughout posterior lung crane), rhonchi (transient in left base, then resolved). Absent: stridor, wheezes - Cardiovascular Cardiovascular exam: Present: +S1, +S2, tachycardia. Absent: irregular rhythm, systolic murmur - GI/Abdominal GI/Abdominal exam: Present: soft. Absent: rebound, tenderness - Extremities Exam Extremities exam: Absent: pedal edema - Neurological Exam Neurological exam: Present: altered, oriented X3. Absent: motor sensory deficit (Tremor present) Medical - PN: Obj Da - Labs CBC & Chem 7: 04/12/18 04:15 04/12/18 04:15 Labs: Abnormal Lab Results 04/12/18 04/12/18 04/11/18 04:15 04:15 04:03 WBC RBC 3.83 L Hgb 12.4 L Hct 37.0 L Gran % 93.9 H Lymph % (Auto) 3.6 L [place] % (Auto) Gran # 8.6 H Lymph # (Auto) 0.3 L [place] # (Auto) PT INR VBG Lactic Acid 1.0 3.0 H Carbon Dioxide 31 H Creatinine 0.6 L Glucose 130 H 04/11/18 04/10/18 04/10/18 04:03 16:54 09:35 WBC RBC 3.79 L Hgb 12.3 L Hct 36.7 L Gran % 94.9 H Lymph % (Auto) 4.7 L [place] % (Auto) 0.3 L Gran # Lymph # (Auto) 0.4 L [place] # (Auto) 0 L PT INR VBG Lactic Acid 4.6 H* 2.7 H Carbon Dioxide Creatinine Glucose 04/10/18 04/10/18 04/10/18 03:30 03:30 03:30 WBC RBC 3.88 L Hgb 12.5 L Hct 37.9 L Gran % 92.1 H Lymph % (Auto) 5.9 L [place] % (Auto) Gran # 8.1 H Lymph # (Auto) 0.5 L [place] # (Auto) PT 14.9 H INR 1.2 H VBG Lactic Acid 2.8 H Carbon Dioxide Creatinine Glucose 04/09/18 04/09/18 04/09/18 18:12 12:07 12:07 WBC RBC Hgb Hct Gran % Lymph % (Auto) [place] % (Auto) Gran # Lymph # (Auto) [place] # (Auto) PT INR VBG Lactic Acid 3.6 H 3.0 H Carbon Dioxide Creatinine Glucose 111 H 04/09/18 12:07 WBC 13.1 H RBC Hgb Hct Gran % Lymph % (Auto) 13.6 L [place] % (Auto) Gran # 10.0 H Lymph # (Auto) [place] # (Auto) 1.2 H PT INR VBG Lactic Acid Carbon Dioxide Creatinine Glucose Microbiology 04/09/18 16:12 Blood Culture - Preliminary Blood 04/09/18 16:19 Blood Culture - Preliminary Blood Meds: Medications Acetaminophen (Tylenol) 650 mg PO Q6HP PRN PRN Reason: PAIN/FEVER > 101 Albuterol/Ipratropium (Duoneb) 3 ml NEB Q4HRT [facility] Last Admin: 04/12/18 07:28 Dose: 3 ml Benztropine Mesylate (Cogentin) 1 - 2 mg PO DAILYP PRN PRN Reason: tremors Famotidine (Pepcid) 20 mg PO BID [facility] Last Admin: 04/12/18 09:07 Dose: 20 mg Heparin Sodium (Porcine) (Heparin) 5,000 unit SQ Q12 [facility] Last Admin: 04/12/18 09:08 Dose: 5,000 unit Levofloxacin (Levaquin) 500 mg in 100 mls @ 100 mls/hr IV DAILY [facility] Last Admin: 04/12/18 09:08 Dose: 100 mls/hr Lorazepam (Ativan) 1 mg PO Q6HP PRN PRN Reason: ANXIETY/SEDATION Last Admin: 04/12/18 09:07 Dose: 1 mg Methylprednisolone Sodium Succinate (Solu-Medrol) 62.5 mg IV Q8 [facility] Last Admin: 04/12/18 05:35 Dose: 62.5 mg Naloxone HCl (Narcan) 0.1 mg IV Q2MIN PRN PRN Reason: Opiate Reversal Fluphenazine Hcl 5 (Mg Tab) 3 dose PO DAILY [facility] Last Admin: 04/12/18 09:08 Dose: 3 dose Ondansetron HCl (Zofran) 4 mg IV Q4HP PRN PRN Reason: Nausea And Vomiting Oxycodone/Acetaminophen (Percocet 5-325 Mg) 1 tab PO Q4HP PRN PRN Reason: Severe Pain Tiotropium [place] [ Spiriva Respimat] Inhaler 2 dose INH DAILY [facility] Last Admin: 04/12/18 09:08 Dose: Not Given Fluticasone/Salmeterol (Advair 500-50 Diskus) 1 puff INH BID [facility] Last Admin: 04/12/18 09:08 Dose: Not Given Sodium Chloride (Saline Flush) 10 ml IV Q8 [facility] Last Admin: 04/12/18 05:35 Dose: 10 ml Trazodone HCl (Desyrel) 50 mg PO HS [facility] Last Admin: 04/11/18 20:22 Dose: 50 mg Medical - PN: A/P - Time Spent With Patient Total time spent is greater than 50% in coordination of care (as documented) at patient's floor/unit and/or counseling patient: - Narrative A/P Narrative: Acute COPD exacerbation- no pneumonia on x ray; underlying severe emphysema. On IV steroids, duonebs, and levofloxacin, day 4. Sat-Recurrent acute dyspnea, unclear if related to anxiety or to primary pulmonary problem. Will check CXR. Requires continued Tele monitoring due to respiratory status. Acute hypoxic Respiratory Failure- not on oxygen at baseline, on 2 L oxygen via nasal canula, occasionally weaned to room air, then some desats. Continue to wean as able. Acute bronchitis- On levofloxacin for same. Lactic acidosis / SIRS- Now Resoved 04/12; etiology? bronchitis? vs Lactic acidemia due to nebulizer treatments b2 agonist. Query whether decreased metabolism as well. CT of the abdomen and pelvis without significant findings to explain lactic acidosis. Exam remains benign. Psychiatric disorder- schizophrenia, follows with Dr Cadena, fluphenazine IM and benztropine. The tremors likely due to antipsychotic medication. hepatitis C- h/o same, lft wnl DVT hep sq Diet regular Full code. Medical - PN: Qual - Stroke Symptom Onset Unknown: No - VTE Deep Vein Thrombosis/Pulmonary Embolism Present on Admission: No
--- NOTE | 2018-04-12 14:09 | XRay Report ---
CLINICAL INFORMATION: Dyspnea COMPARISON: Plain film from 04/09/[address] 05/29/2016. FINDINGS: Heart size, mediastinum and pulmonary vessels are normal. Severe underlying emphysematous changes (known from CT) seen as as before. On today's study, small right basilar infiltrate is unchanged. The left upper lung and left basilar infiltrates have nearly cleared. Small bilateral pleural effusions noted IMPRESSION: Small patchy right basilar infiltrate unchanged. Improvement in left upper and lower lung infiltrates Underlying severe emphysema Small bilateral pleural fusions - progressing Interpreted and Authenticated by: Masood Weinberg 04/12/18
[2018-04-12] MEDS: BENZTROPINE 1 MG TABLET PO SCH ×2 (15:18→21:29)
[2018-04-12] MEDS: METOPROLOL TARTRATE 25 MG TABLET PO SCH ×2 (15:18→21:30)
[2018-04-12] MEDS: traZODone HCL 50 MG TABLET PO SCH (21:30)
[2018-04-13] MEDS: IPRATROPIUM/ALBUTEROL 3 ML AMPUL.NEB NEB SCH ×6 (03:58→23:05)
[2018-04-13] MEDS: 0.9 % SODIUM CHLORIDE 10 ML SYRINGE IV SCH ×3 (05:47→21:39)
[2018-04-13 06:11] LABS: Basophils # (Auto) 0 K/mcL (0.0-0.3); Basophils % (Auto) 0 % (0.0-2.0); Eosinophils # (Auto) 0 K/mcL (0.0-0.7); Eosinophils % (Auto) 0.2 % (0.0-7.0); Granulocytes % (Auto) 81.4 % (38.0-78.0); Lymphocytes # (Auto) 1.2 K/mcL (1.5-4.8); Lymphocytes % (Auto) 10.2 % (15.5-49.0); Mean Cell Volume 97.5 fL (80.0-100.0); Mean Corpuscular HGB Conc 33.2 g/dL (31.0-36.0); Mean Corpuscular Hemoglobin 32.4 pg (26.0-34.0); Monocytes # (Auto) 0.9 K/mcL (0.1-0.9); Monocytes % (Auto) 8.2 % (1.0-12.0); Platelet Count 238 K/mcL (140-440); RBC 3.84 M/mcL (4.50-5.90); Red Cell Distribution Width 13.7 % (11.5-14.5)
[2018-04-13 06:32] LABS: Blood Urea Nitrogen 17 mg/dl (6-20)
[2018-04-13] MEDS: FLUTICASONE/SALMETEROL 500/50 INHALER #14 INH SCH ×2 (09:00→20:47)
[2018-04-13] MEDS: LEVOFLOXACIN 500 MG/100 ML BAG IV SCH (09:00)
[2018-04-13] MEDS ORDERED: METOPROLOL TARTRATE 25 MG TABLET PO ONE (10:38)
[2018-04-13] MEDS: HEPARIN 5,000 UNIT/ML VIAL SQ SCH ×2 (11:16→20:52)
[2018-04-13] MEDS: predniSONE 20 MG TABLET PO SCH (11:17)
[2018-04-13] MEDS: FAMOTIDINE 20 MG TABLET PO SCH ×2 (11:17→20:52)
[2018-04-13] MEDS: LORazepam 1 MG TABLET PO PRN (11:17)
[2018-04-13] MEDS: METOPROLOL TARTRATE 25 MG TABLET PO SCH ×2 (11:17→20:52)
[2018-04-13] MEDS: BENZTROPINE 1 MG TABLET PO SCH ×2 (11:21→20:53)
--- NOTE | 2018-04-13 14:38 | Internal Med Progress Note ---
Medical - PN: Subj Patient information: Note initiated : 04/13/18 at 2:36 pm Service Date, if different from initiated Date: [] Patient: Shwetha Means a 58 y/o M admitted on 04/10/18 for Shortness of breath. Chief Complaint: f/u COPD Interval history: Mr. Means is a 57 year old M with history of chronic obstructive pulmonary disease-asthma with multiple recent visits to the emergency room presents to the ER today for shortness of breath and wheezing. According to the patient this has been going on for the last 2 days. The patient was here yesterday and was advised to be admitted to the hospital he was treated with duo nebs and steroids however the patient declined admission. The patient today again comes in with shortness of breath and according to the ED note it seems that he did not take his steroids as he was supposed to. Not sure if he picked up his prescriptions for inhalers either. The patient notes shortness of breath is worse with activity associated with wheezing. He has some cough with light sputum production. He admits to feeling tired and fatigued but denies any acute fever or chills or rigors. The patient has had history of admissions to the hospital for asthma or COPD exacerbation he notes that he has also been in the ICU in the past. In the emergency room patient had a low-grade temperature 100.1, otherwise blood pressure was stable. He had increased oxygen needs needing 2 L of oxygen to maintain his oxygen saturation more than 90, patient had elevated lactic acid at 3.0. Chemistry was fine. Chest x-ray showed severe COPD. Patient was advised admission to the hospital for further management 04/10 Pt seen examined, no acute overnight events, fever resolved, lactic acid is persistent, on IV fluids, Lactate is better today Given persistent lactic acid, will switch the patient to inpatient status, anticipate 2 mn stay Pt still on oxygen has wheezing today on exam Will get CT Abdomen and pelvis to ensure no intraabdominal source for lactic acid, given CXR is negative for infection. Patient will continue on levofloxacin for now. Microbiology negative so far. 04/11 Had episode of tachypnea and tachycardia today. Seemed to be quite anxious. Improved after a single dose of 0.5 mg lorazepam. When I see the patient, no specific complaints. Lactic acid was elevated last evening, received further 1 L bolus, back down to 3.0 today. Otherwise white counts normalize, no other indication of endorgan damage. 04/12 Repeat episode of anxiety, then dyspnea/desaturation and associated tachycardia and elevated BP. Resolved after lorazepam. Exam w/o significant wheezing. Lactate has normalized. 04/13 Still with episodes of anxiety, dyspnea, mild tachycardia, though improved. Currently without complaints. Still on 2 L nasal cannula frequently. Pertinent ROS: No fever, chills, no chest pain, no nausea or vomiting - Constitutional Vitals: Vital Signs Temp Pulse Resp BP Pulse Ox 99.4 F H 90 21 91/56 98 04/13/18 12:28 04/13/18 11:20 04/13/18 12:28 04/13/18 12:28 04/13/18 12:28 Period Temp Pulse Resp BP Sys/Dugan Pulse Ox Last 24 Hr 97.5 F-99.4 F 75-105 16-21 91-125/56-90 96-100 Intake and Output 04/13/18 04/13/18 04/13/18 05:59 13:59 21:59 Intake Total 940 / 940 Output Total 500 / 500 1350 / 1350 Balance -500 / -500 -410 / -410 Intake & Output: Intake & Output 04/13/18 04/13/18 04/13/18 05:59 13:59 21:59 Intake Total 940 / 940 Output Total 500 / 500 1350 / 1350 Balance -500 / -500 -410 / -410 Intake: IV 100 / 100 Oral 840 / 840 Output: Void Amount 500 / 500 1350 / 1350 Other: Meal Lunch Percent of Meal Consumed 100% Feeding Ability Independent Stool Color Brown Stool Consistency Normal for Patient Soft Exam: General: Laying in bed, no acute distress HEENT: Normocephalic. Sclerae are anicteric. Oropharynx is clear. Chest: Diminished throughout, no wheezes, no rhonchi, respirations unlabored Cardiovascular: Regular, no edema Abdomen: Soft, nontender Neuro: Alert, was all extremities equally, no hallucinations Medical - PN: Obj Da - Labs CBC & Chem 7: 04/13/18 04:00 04/13/18 04:00 Labs: Abnormal Lab Results 04/13/18 04/13/18 04/12/18 04:00 04:00 04:15 WBC 11.4 H RBC 3.84 L Hgb 12.4 L Hct 37.5 L Gran % 81.4 H Lymph % (Auto) 10.2 L [place] % (Auto) Gran # 9.3 H Lymph # (Auto) 1.2 L Christian # (Auto) VBG Lactic Acid Carbon Dioxide 35 H 31 H Anion Gap 2.0 L Creatinine 0.6 L 0.6 L Glucose 130 H 04/12/18 04/11/18 04/11/18 04:15 04:03 04:03 WBC RBC 3.83 L 3.79 L Hgb 12.4 L 12.3 L Hct 37.0 L 36.7 L Gran % 93.9 H 94.9 H Lymph % (Auto) 3.6 L 4.7 L Christian % (Auto) 0.3 L Gran # 8.6 H Lymph # (Auto) 0.3 L 0.4 L Christian # (Auto) 0 L VBG Lactic Acid 3.0 H Carbon Dioxide Anion Gap Creatinine Glucose 04/10/18 16:54 WBC RBC Hgb Hct Gran % Lymph % (Auto) Christian % (Auto) Gran # Lymph # (Auto) Christian # (Auto) VBG Lactic Acid 4.6 H* Carbon Dioxide Anion Gap Creatinine Glucose Microbiology 04/09/18 16:12 Blood Culture - Preliminary Blood 04/09/18 16:19 Blood Culture - Preliminary Blood Meds: Medications Acetaminophen (Tylenol) 650 mg PO Q6HP PRN PRN Reason: PAIN/FEVER > 101 Albuterol/Ipratropium (Duoneb) 3 ml NEB Q4HRT [facility] Last Admin: 04/13/18 11:15 Dose: 3 ml Benztropine Mesylate (Cogentin) 1 - 2 mg PO BID [facility] Last Admin: 04/13/18 11:21 Dose: 1 mg Famotidine (Pepcid) 20 mg PO BID [facility] Last Admin: 04/13/18 11:17 Dose: 20 mg Heparin Sodium (Porcine) (Heparin) 5,000 unit SQ Q12 [facility] Last Admin: 04/13/18 11:16 Dose: 5,000 unit Levofloxacin (Levaquin) 500 mg in 100 mls @ 100 mls/hr IV DAILY [facility] Last Infusion: 04/13/18 10:00 Dose: Infused Lorazepam (Ativan) 1 mg PO Q6HP PRN PRN Reason: ANXIETY/SEDATION Last Admin: 04/13/18 11:17 Dose: 1 mg Metoprolol Tartrate (Lopressor) 25 mg PO BID [facility] Naloxone HCl (Narcan) 0.1 mg IV Q2MIN PRN PRN Reason: Opiate Reversal Fluphenazine Hcl 5 (Mg Tab) 3 dose PO DAILY [facility] Last Admin: 04/13/18 09:00 Dose: 3 dose Ondansetron HCl (Zofran) 4 mg IV Q4HP PRN PRN Reason: Nausea And Vomiting Oxycodone/Acetaminophen (Percocet 5-325 Mg) 1 tab PO Q4HP PRN PRN Reason: Severe Pain Tiotropium [place] [ Spiriva Respimat] Inhaler 2 dose INH DAILY [facility] Last Admin: 04/13/18 09:00 Dose: Not Given Prednisone (Prednisone) 40 mg PO [facility] Last Admin: 04/13/18 11:17 Dose: 40 mg Fluticasone/Salmeterol (Advair 500-50 Diskus) 1 puff INH BID [facility] Last Admin: 04/13/18 09:00 Dose: Not Given Sodium Chloride (Saline Flush) 10 ml IV Q8 [facility] Last Admin: 04/13/18 12:25 Dose: 10 ml Trazodone HCl (Desyrel) 50 mg PO HS [facility] Last Admin: 04/12/18 21:30 Dose: 50 mg Medical - PN: A/P - Narrative A/P Narrative: Acute COPD exacerbation- no pneumonia on x ray; underlying severe emphysema. On IV steroids, duonebs, and levofloxacin, day 5. Recurrent bouts of dyspnea are improved. Chest x-ray without acute findings yesterday. Interventions including addition of metoprolol and stopping IV steroids, converting to prednisone. Plan: Continue with treatment of COPD, monitor for any further episodes of tachypnea/tachycardia/desaturation. Acute hypoxic Respiratory Failure- not on oxygen at baseline, on 2 L oxygen via nasal canula, occasionally weaned to room air, then some desats. Continue to wean as able. Acute bronchitis- On levofloxacin for same. Lactic acidosis / SIRS- Now Resoved 04/12; etiology? bronchitis? vs Lactic acidemia due to nebulizer treatments b2 agonist. Query whether decreased metabolism as well. CT of the abdomen and pelvis without significant findings to explain lactic acidosis. Exam remains benign. Psychiatric disorder- schizophrenia, follows with Dr Cadena, fluphenazine IM and benztropine. The tremors likely due to antipsychotic medication. Cogentin twice a day hepatitis C- h/o same, lft wnl DVT hep sq Diet regular Full code. Medical - PN: Qual - Stroke Symptom Onset Unknown: No - VTE Deep Vein Thrombosis/Pulmonary Embolism Present on Admission: No
[2018-04-13] MEDS: traZODone HCL 50 MG TABLET PO SCH (20:52)
[2018-04-14] MEDS: IPRATROPIUM/ALBUTEROL 3 ML AMPUL.NEB NEB SCH ×2 (03:35→07:18)
[2018-04-14 05:13] LABS: Basophils # (Auto) 0 K/mcL (0.0-0.3); Basophils % (Auto) 0 % (0.0-2.0); Eosinophils # (Auto) 0 K/mcL (0.0-0.7); Eosinophils % (Auto) 0.1 % (0.0-7.0); Granulocytes % (Auto) 91.4 % (38.0-78.0); Lymphocytes # (Auto) 0.6 K/mcL (1.5-4.8); Lymphocytes % (Auto) 5.4 % (15.5-49.0); Mean Cell Volume 96.9 fL (80.0-100.0); Monocytes # (Auto) 0.3 K/mcL (0.1-0.9); Monocytes % (Auto) 3.1 % (1.0-12.0); Platelet Count 269 K/mcL (140-440); RBC 3.94 M/mcL (4.50-5.90); Red Cell Distribution Width 13.8 % (11.5-14.5)
[2018-04-14 05:28] LABS: Blood Urea Nitrogen 19 mg/dl (6-20)
[2018-04-14] MEDS: 0.9 % SODIUM CHLORIDE 10 ML SYRINGE IV SCH (05:50)
[2018-04-14] MEDS: FLUTICASONE/SALMETEROL 500/50 INHALER #14 INH SCH (08:53)
[2018-04-14] MEDS: BENZTROPINE 1 MG TABLET PO SCH (08:53)
[2018-04-14] MEDS: LEVOFLOXACIN 500 MG/100 ML BAG IV SCH (09:14)
[2018-04-14] MEDS: HEPARIN 5,000 UNIT/ML VIAL SQ SCH (09:15)
[2018-04-14] MEDS: FAMOTIDINE 20 MG TABLET PO SCH (09:15)
[2018-04-14] MEDS: METOPROLOL TARTRATE 25 MG TABLET PO SCH (09:15)
[2018-04-14] MEDS: predniSONE 20 MG TABLET PO SCH (09:15)
--- NOTE | 2018-04-14 09:16 | Discharge Summary ---
Medical - DS: Prov Patient information: Note initiated : 04/14/18 at 9:13 am Patient: Shwetha Means 58 y/o M admitted on 04/10/18 for Shortness of breath. Date of admission: 04/10/18 08:45 Discharge date: 04/14/18 Primary care physician: Vianney Whitehead Admitting clinician: Lex Saravia Consults: 04/09/18 15:45 Consult to Physician [CONS] Stat Comment: Consulting Provider: Lex Saravia Reason For Exam: Physician to Consult Discharging clinician: Keshia Duffy Medical - DS: Meds - Discharge Medications Prescriptions: Metoprolol Succinate [Toprol Xl] 50 mg PO DAILY #30 tab.er.24h predniSONE [Prednisone] 40 mg PO [facility] #11 tab Active and Home Medications: Home Medications Albuterol Sulfate [Ventolin] 2 puff INH Q4-6HP PRN #1 inhaler 04/08/18 [Rx Confirmed 04/09/18 Last Taken Unknown] Tiotropium [place] [Spiriva Respimat] 2 puff INH DAILY #1 each 04/08/18 [Rx Confirmed 04/09/18 Last Taken Unknown] predniSONE [Prednisone] 10 mg PO DAILY #30 tab 04/08/18 [Rx Confirmed 04/09/18 Last Taken Unknown] Albuterol Sulfate [Ventolin] 2 puff INH TIDP PRN 04/09/18 [History Confirmed 09/26 Last Taken Unknown] Benztropine [Cogentin] 1 - 2 mg PO DAILYP PRN 04/09/18 [History Confirmed Last Taken Unknown] Fluticasone/Salmeterol [Advair 500-50 Diskus] 1 puff INH BID 04/09/18 [History Confirmed 04/09/18 Last Taken Unknown] fluPHENAZine DECANOATE [Fluphenazine Decanoate] 1.5 ml IM Q2W 04/09/18 [History Confirmed 04/09/18 Last Taken Unknown] fluPHENAZine HCL [Fluphenazine HCl] 3 tablet PO DAILY 04/09/18 [History Confirmed 04/09/18 Last Taken Unknown] traZODone HCL [Desyrel] 50 mg PO DAILY 04/09/18 [History Confirmed 04/09/18 Last Taken Unknown] Medical - DS: Hosp Hospital course: In summary: 57-year-old with history of significant COPD, presenting with dyspnea, sputum and low-grade fever. Presentation notable for lactate of 3.0, this fluctuated in spite of aggressive fluids over the next 3 hospital days before normalizing. CT of the abdomen and pelvis without evidence of occult infection (did show mild ascites and edema, however this was obtained after aggressive fluid resuscitation). Patient was nontoxic throughout this time frame. He is also treated for COPD flare, including antibiotics for acute exacerbation of chronic bronchitis. A diagnosis of pneumonia was not made. He had intermittent episodes of dyspnea which had resolved by the time of discharge. 04/09 Mr. Means is a 57 year old M with history of chronic obstructive pulmonary disease-asthma with multiple recent visits to the emergency room presents to the ER today for shortness of breath and wheezing. According to the patient this has been going on for the last 2 days. The patient was here yesterday and was advised to be admitted to the hospital he was treated with duo nebs and steroids however the patient declined admission. The patient today again comes in with shortness of breath and according to the ED note it seems that he did not take his steroids as he was supposed to. Not sure if he picked up his prescriptions for inhalers either. The patient notes shortness of breath is worse with activity associated with wheezing. He has some cough with light sputum production. He admits to feeling tired and fatigued but denies any acute fever or chills or rigors. The patient has had history of admissions to the hospital for asthma or COPD exacerbation he notes that he has also been in the ICU in the past. In the emergency room patient had a low-grade temperature 100.1, otherwise blood pressure was stable. He had increased oxygen needs needing 2 L of oxygen to maintain his oxygen saturation more than 90, patient had elevated lactic acid at 3.0. Chemistry was fine. Chest x-ray showed severe COPD. Patient was advised admission to the hospital for further management 04/10 Pt seen examined, no acute overnight events, fever resolved, lactic acid is persistent, on IV fluids, Lactate is better today Given persistent lactic acid, will switch the patient to inpatient status, anticipate 2 mn stay Pt still on oxygen Has wheezing today on exam Will get CT Abdomen and pelvis to ensure no intraabdominal source for lactic acid, given CXR is negative for infection. Patient will continue on levofloxacin for now. Microbiology negative so far. 04/11 Had episode of tachypnea and tachycardia today. Seemed to be quite anxious. Improved after a single dose of 0.5 mg lorazepam. When I see the patient, no specific complaints. Lactic acid was elevated last evening, received further 1 L bolus, back down to 3.0 today. Otherwise white counts normalize, no other indication of end-organ damage. 04/12 Repeat episode of anxiety, then dyspnea/desaturation and associated tachycardia and elevated BP. Resolved after lorazepam. Exam w/o significant wheezing. Lactate has normalized. 04/13 Still with episodes of anxiety, dyspnea, mild tachycardia, though improved. Currently without complaints. Still on 2 L nasal cannula frequently. 04/14 Feeling well today, no episodes of dyspnea, no episodes tachycardia. His been ambulating in the halls without symptoms. Off of oxygen. Feels improved. Once to be discharged. Discharge diagnosis: COPD with exacerbation Secondary discharge diagnosis: Lactic acidosis, resolved Acute hypoxic respiratory failure, resolved Schizophrenia, stable - Time Spent with Patient Total time spent providing and/or coordinating discharge services: Greater than 30 minutes Medical - DS: Exam - Constitutional Vitals: Vital Signs Temp Pulse Resp BP Pulse Ox 04/14/18 07:38 98.7 F 17 115/82 98 04/14/18 07:23 93 H 16 04/14/18 07:19 97 04/14/18 07:18 97 04/14/18 04:18 98.0 F 12 122/68 99 04/14/18 00:54 98.0 F 18 130/88 94 04/13/18 23:26 96 H 18 04/13/18 21:09 97.8 F 18 96 04/13/18 19:30 94 H 20 97 04/13/18 16:09 99.6 F H 18 98/71 97 04/13/18 15:20 87 20 04/13/18 12:28 99.4 F H 21 91/56 98 04/13/18 11:20 90 16 04/13/18 11:15 96 Intake and Output 04/13/18 04/14/18 04/14/18 21:59 05:59 13:59 Intake Total 560 / 560 Output Total 550 / 550 500 / 500 Balance 560 / 560 -550 / -550 -500 / -500 Intake: Oral 240 / 240 Tube Feeding 320 / 320 Output: Void Amount 550 / 550 500 / 500 Other: Meal Dinner Percent of Meal Consumed 100% Feeding Ability Independent # Bowel Movements 1 Weight 112 lb 3.2 oz Additional comments: General: Laying in bed, no distress Chest: Better aeration bilaterally, no wheezes, no rhonchi, respirations are unlabored Cardiovascular: Regular, no edema Abdomen: Soft, nontender Neuro: Alert, oriented, ambulating in halls with normal gait, nonfocal Medical - DS: Data Labs on day of discharge: Labs from last 24 hours 04/14/18 04/14/18 04/14/18 03:57 03:57 03:57 WBC 10.9 RBC 3.94 L Hgb 12.6 L Hct 38.2 L MCV 96.9 MCH 32.0 MCHC 33.0 RDW 13.8 Plt Count 269 MPV 8.4 Gran % 91.4 H Lymph % (Auto) 5.4 L [place] % (Auto) 3.1 Eos % (Auto) 0.1 Baso % (Auto) 0 Gran # 10.0 H Lymph # (Auto) 0.6 L [place] # (Auto) 0.3 Eos # (Auto) 0 Baso # (Auto) 0 PT 13.4 INR 1.0 Sodium 139 Potassium 4.2 Chloride 99 Carbon Dioxide 33 H Anion Gap 7.0 L BUN 19 Creatinine 0.6 L GFR Calculation 111 Glucose 126 H Calcium 8.7 Preliminary micro results at discharge 04/09/18 16:12 Blood Culture - Preliminary Blood 04/09/18 16:19 Blood Culture - Preliminary Blood - Imaging and Cardiology Chest x-ray Additional comments: 04/09 FINDINGS: Heart size, mediastinal pulmonary vessels are normal. Severe COPD changes and scattered scarring again noted. No infiltrates or other new pulmonary abnormalities. No effusions. Bones soft tissues normal IMPRESSION: Severe COPD changes - stable CT scan - abdomen Additional comments: 04/10 IMPRESSION: 1. Moderate periportal edema and mild ascites in the abdomen and pelvis - new from the [address] Periportal edema typically indicates primary hepatocellular disease (hepatitis, early cirrhosis etc.) It could also indicate congestive hepatopathy in the presence of congestive heart failure or elevated right heart pressures - no CT support for CHF, however. 2. Severe emphysema - stable 3. Mild prostate enlargement - slightly increased prior study Medical - DS: A/P - Patient/Caregiver Discharge Instructions Activity: increase activity as tolerated Diet: Regular Diet Prescriptions: Metoprolol Succinate [Toprol Xl] 50 mg PO DAILY #30 tab.er.24h predniSONE [Prednisone] 40 mg PO [facility] #11 tab - Follow up Plan Follow up with: Vianney Whitehead DNP, [employer] [Primary Care Provider] - (7-10 days) Disposition: Home, Self-Care Prognosis: Good Rehab Potential: Good Overall status at discharge: patient is back to baseline Medical - DS: Qual - VTE Deep Vein Thrombosis/Pulmonary Embolism Present on Admission: No
== END 2018-04-14 11:10 | disposition home or self-care (01) | DRG 190 ==
LOC: ICU 11:51 → ED 11:51 → ICU 16:40 → SUATTDRO 04-10 08:45
PROVIDERS: ADMIT Internal Medicine; ATTEND Internal Medicine

== ENCOUNTER 2019-02-17 15:17 | Observation (INO) ==
--- NOTE | 2019-02-17 16:06 | XRay Report ---
CLINICAL INFORMATION: shortness of breath COMPARISON: 01/20/2019 FINDINGS: Heart size, mediastinum and pulmonary vessels are normal. Severe COPD appreciated. No infiltrates or new pulmonary abnormalities. No effusions. IMPRESSION: Severe COPD - stable Interpreted and Authenticated by: Masood Weinberg 02/17/19
[2019-02-17 16:12] LABS: Hematocrit 45.4 % (41.0-55.0); Hemoglobin 14.9 g/dL (13.5-16.5); Mean Cell Volume 94.5 fL (80.0-100.0); Mean Corpuscular HGB Conc 32.8 g/dL (31.0-36.0); Mean Platelet Volume 7.2 fL (7.4-10.4); Platelet Count 379 K/mcL (140-440); Red Cell Distribution Width 15.1 % (11.5-14.5); WBC 8.6 K/mcL (4.5-11.0)
[2019-02-17 16:30] LABS: ALT/SGPT 15 U/l (0-40); AST/SGOT 21 U/l (0-37); Albumin 4.2 gm/dL (3.2-5.2); Albumin/Globulin Ratio 1.4 (1.0-2.3); Alkaline Phosphatase 88 U/L (39-117); Bilirubin,Total 0.6 mg/dL (0.0-1.0); Blood Urea Nitrogen 25 mg/dl (6-20); Carbon Dioxide 27 mmol/L (22-30); Chloride 101 mmol/L (96-108); Globulin 2.9 gm/dL (2.2-3.7); Glomerular Filtration Rate 94; Glucose 98 mg/dL (70-105); Potassium 4.6 mmol/L (3.3-5.1); Sodium 141 mmol/L (133-145)
[2019-02-17 16:35] LABS: Anisocytosis FEW (NONE SEEN); Eosinophils % (Manual) 1 % (0-7); Lymphocytes % 6 % (15-49); Monocytes % (Manual) 6 % (1-12); Platelet Estimate NORMAL (NORMAL); RBC Morphology ABNORM (NORMAL); Segmented Neutrophils % 87 % (38-78)
--- NOTE | 2019-02-17 18:20 | Emergency Department Note ---
General Adult HPI - General Chief complaint: Shortness of Breath/Dyspnea Stated complaint: Shortness of breath Time Seen by Provider: 02/17/19 16:07 Source: patient, EMS Mode of arrival: EMS Limitations: no limitations - History of Present Illness HPI Narrative: 58-year-old male presents with shortness of breath. Has chronic shortness of breath due to severe COPD but worse the last week or so. There was some question of whether his shortness of breath was related to possibly getting arrested today due to an outstanding warrant however that was never verified. Patient has been here multiple times in the last month. Seems to have failure to thrive and inability to care for himself as well as a lack of being able to make a rational decision. He has not been taking any of his medications for his COPD or his schizophrenia. This seems to have been going on since July. He was consistently seen a primary care provider, Dionne Treadwell, and was somewhat decently managed until he can no dropped off all documentation in July and then reappeared in January 2019. States he has not taken his medication for months but he has no idea what day or time it is. He knows where he is and briefly while he is here but has a hard time making a logical decision. States unknown fever or chills. No nausea, vomiting, or diarrhea. Has not ate or drank in days. States he is been homeless occasionally staying in the hotel but usually living in his truck. Patient has told me he has not eaten or drank anything for at least 3 days. He told the [facility] health customer operations representative that he had a tuna sandwich earlier. When he arrived his mucous membranes were extremely dry, blood pressure of 80/50. This may be's some confusion although hard to differentiate between behavioral issues. He does hear voices. Refuses to take his medications. Although he states he will take him he just cannot get him in this is unclear why. He has been set up by [facility] multiple times for help with medications and primary care as well as housing but cannot seem to follow through with any of it and does not appear to be capable of making a rational decision and that form. He does have a chronic dry cough. About a month ago he was admitted to [facility] and apparently was removed from the facility for smoking marijuana out in the open nurses station. field services analyst did evaluate him today and they state that he says he would like to go back to [facility] however they will not take him back here at the [facility]. There is a possibility they will take him back at the [facility] but it would be tomorrow before they can do so. States he is homeless living in a vehicle with very limited access to food, water, her money however he does continue to smoke some cigarettes as well as marijuana. He has family including a sister and father in town but states he is not allowed to have anything to do with them. Although he does admit to hearing voices he denies any thoughts of harming himself or others. We do have documentation of the weight back in July 2018 of 194 pounds and today he is 91.4 pounds. - Related Data Home Medications Medication Instructions Recorded Confirmed Benztropine [Cogentin] 1 - 2 mg PO DAILYP PRN 04/09/18 07/01/18 fluPHENAZine DECANOATE 1.5 ml IM Q2W 04/09/18 07/01/18 [Fluphenazine Decanoate] traZODone HCL [Desyrel] 50 mg PO HS 04/09/18 07/01/18 Advair 500-50 Diskus 1 puff INH BID 07/01/18 07/01/18 Tiotropium [place] [Spiriva] 2 puff INH DAILY 07/01/18 07/01/18 fluPHENAZine HCL [Fluphenazine HCl] 15 mg PO HS 07/01/18 07/01/18 Previous Rx's Medication Instructions Recorded Acetaminophen [Tylenol] 650 mg PO Q4-6HP PRN tablet 07/07/18 Albuterol Sulfate [Ventolin] 2 puff INHALATION Q6HP PRN #18 g 07/07/18 Calcium Carbonate [Tums] 1,000 mg CHEWED Q4HP PRN tab.chew 07/07/18 Docusate Sodium [Colace] 100 mg PO BID capsule 07/07/18 Folic Acid 1 mg PO DAILY tablet 07/07/18 Ipratropium/Albuterol [Duoneb] 3 ml NEB Q6HRT ampul.neb 07/07/18 Multivit,Ther Iron,Ca,FA & Min 1 tab PO DAILY tablet 07/07/18 [Multivitamin W/Minerals] Polyethylene Glycol 3350 [Miralax] 17 gm PO DAILYP PRN packet 07/07/18 Sennosides/Docusate Sodium [Senna 1 tab PO HS tablet 07/07/18 Plus Tablet] predniSONE [Prednisone] 60 mg PO QAMCC #20 tab 07/07/18 lorazepam 0.5 mg tablet 0.5 mg PO TID PRN #30 tab 07/11/18 LORazepam [Ativan] 0.5 mg PO TID PRN #60 tab 01/20/19 fluPHENAZine DECANOATE 1.5 ml IJ Q2W #10 ml 01/20/19 [Fluphenazine Decanoate] fluPHENAZine HCL [Fluphenazine HCl] 15 mg PO QHS #45 tab 01/20/19 traZODone HCL [Trazodone HCl] 50 mg PO QHS PRN #30 tab 01/20/19 Allergies Allergy/AdvReac Type Severity Reaction Status Date / Time No Known Drug Allergies Allergy Verified 02/17/19 15:22 Review of Systems All systems ED: reviewed and negative except as stated. Past Medical History - Past Medical History [facility] Narrative: Medical History (This Medical Record has been edited. Action required.) Weight loss (Acute) Tobacco use (Chronic) Subacute dyskinesia due to drug (Chronic) Psychotic disorder with delusions (Chronic) Hepatitis C (Chronic) COPD (chronic obstructive pulmonary disease) (Chronic 10/16/14) Chronic use of opiate drugs therapeutic purposes (Chronic 03/26/13) Asthma (Chronic 07/30/12) Allergic rhinitis (Chronic) Reactive airway disease (Resolved) Medical history: Reports: asthma, COPD, other Psychiatric history: Reports: other, anxiety, depression, schizophrenia Surgical history ED: Reports: no surgical history - Social History smoking status: Former smoker Alcohol use: Reports: None Drug use: Reports: none. Denies: marijuana Physical Exam Limitations: no limitations General appearance: other (Moderate tachypnea on arrival and extremely pale, thin, and fragile with dry mucous membranes) Head: atraumatic, normocephalic, normal inspection Eye: Present: normal appearance. Absent: conjunctival injection ENT: mucous membranes dry, normal external ear exam, other Neck: Present: normal inspection, trachea midline. Absent: tenderness, lymphadenopathy Chest: Present: symmetric chest wall rise Respiratory: Present: respiratory distress (Tachypneic with a rate of 40 on arrival and mild accessory muscle use.), wheezes (Inspiratory and expiratory wheezing throughout), accessory muscle use. Absent: rales/crackles, stridor Cardiovascular: Present: regular rate, normal heart sounds Neurological: Present: alert. Absent: oriented X3 (Oriented to place and person but not time or date. Has hard times making decision especially with a [id number] type decision-making process. Denies any thoughts of harming himself or others. Does hear voices.) Psychiatric: Absent: homicidal ideation, suicidal ideation Skin: Present: warm, dry, intact Course Course Narrative: At 1700 I did make a call to [facility] intake line to discuss her continued concerns about his failure to thrive, weight loss, generally inability to take care of himself as well as make a rational decision. They state there is nothing they can do emergently but will contact him within 5 days. Someone called back shortly after that to tell us that they would be here at noon tomorrow to chichi luate him. However there are concerns that due to his age they cannot intervene unless he has a caregiver or [place] health [place] type placement that was abusive to him because he does not fall within our guidelines. I did ask [facility] to come evaluate this patient. They do not feel he is eminent danger to himself. They do agree that he cannot necessarily make a rational decisions when it comes to a cause effect type decision making but they state that he is not going to harm himself or others although I have to disagree with this. He has a definite harm to himself as he is not caring for himself, ea ting, or drinking in the simple fluctuation no more than 100 pound weight loss over the last 6 months indicates so. He has been set up with multiple resources including medication management, housing through [facility], [place] placement, and various others. There is question of whether or not there is some manipulative behavior going on and he is not using these resources unless they are beneficial to him at the time versus him truly not understanding the consequences of his actions or also not been able to follow through because he is simply not capable of follow-through and that whole thought process. H states somebody will come and check on him tomorrow. I do have our social service department involved as well. They had no other suggestions from the other than talking to [facility] but they have been in contact with [facility] and there is a possibility that he could go to the [facility] tomorrow or in the next few days possibly but uncertain We did hydrate this patient and he did eat a very large meal. Seems to do be doing better. I did speak with hospitalist, Dr. Landry who agrees to accept this patient. Vital Signs Temperature 98.8 F 02/17/19 15:17 Pulse Rate 112 H 02/17/19 15:17 Respiratory Rate 30 H 02/17/19 15:17 Blood Pressure 96/59 02/17/19 15:17 Pulse Oximetry (%) 96 02/17/19 15:17 Temperature 98.8 F 02/17/19 15:17 Pulse Rate 79 02/17/19 17:37 Respiratory Rate 21 02/17/19 17:37 Blood Pressure 101/74 02/17/19 17:30 Pulse Oximetry (%) 96 02/17/19 17:37 Medical Decision Making - Lab Data Result diagrams: 02/17/19 15:39 02/17/19 15:39 Lab Results 02/17/19 02/17/19 02/17/19 Range/Units 15:39 15:39 15:39 WBC 8.6 (4.5-11.0) K/mcL RBC 4.80 (4.50-5.90) M/mcL Hgb 14.9 (13.5-16.5) g/dL Hct 45.4 (41.0-55.0) % MCV 94.5 (80.0-100.0) fL MCH 31.1 (26.0-34.0) pg MCHC 32.8 (31.0-36.0) g/dL RDW 15.1 H (11.5-14.5) % Plt Count 379 (140-440) K/mcL MPV 7.2 L (7.4-10.4) fL Total Counted 100 Seg Neutrophils % 87 H (38-78) % Band Neutrophils % Not Reportable Lymphocytes % 6 L (15-49) % Monocytes % (Manual) 6 (1-12) % Eosinophils % (Manual) 1 (0-7) % Platelet Estimate Normal (NORMAL) RBC Morphology Abnorm A (NORMAL) Anisocytosis Few A (NONE SEEN) VBG Lactic Acid 1.8 (0.5-2.0) mmol/L Sodium 141 (133-145) mmol/L Potassium 4.6 (3.3-5.1) mmol/L Chloride 101 (96-108) mmol/L Carbon Dioxide 27 (22-30) mmol/L Anion Gap 13.0 (8-16) BUN 25 H (6-20) mg/dl Creatinine 0.9 (0.7-1.2) mg/dl GFR Calculation 94 Glucose 98 (70-105) mg/dL Calcium 9.0 (8.6-10.4) mg/dl Total Bilirubin 0.6 (0.0-1.0) mg/dL AST 21 (0-37) U/l ALT 15 (0-40) U/l Alkaline Phosphatase 88 (39-117) U/L Total Protein 7.1 (5.9-8.4) gm/dL Albumin 4.2 (3.2-5.2) gm/dL Globulin 2.9 (2.2-3.7) gm/dL Albumin/Globulin Ratio 1.4 (1.0-2.3) Procalcitonin (<0.10) ng/mL 02/17/19 Range/Units 15:39 WBC (4.5-11.0) K/mcL RBC (4.50-5.90) M/mcL Hgb (13.5-16.5) g/dL Hct (41.0-55.0) % MCV (80.0-100.0) fL MCH (26.0-34.0) pg MCHC (31.0-36.0) g/dL RDW (11.5-14.5) % Plt Count (140-440) K/mcL MPV (7.4-10.4) fL Total Counted Seg Neutrophils % (38-78) % Band Neutrophils % Lymphocytes % (15-49) % Monocytes % (Manual) (1-12) % Eosinophils % (Manual) (0-7) % Platelet Estimate (NORMAL) RBC Morphology (NORMAL) Anisocytosis (NONE SEEN) VBG Lactic Acid (0.5-2.0) mmol/L Sodium (133-145) mmol/L Potassium (3.3-5.1) mmol/L Chloride (96-108) mmol/L Carbon Dioxide (22-30) mmol/L Anion Gap (8-16) BUN (6-20) mg/dl Creatinine (0.7-1.2) mg/dl GFR Calculation Glucose (70-105) mg/dL Calcium (8.6-10.4) mg/dl Total Bilirubin (0.0-1.0) mg/dL AST (0-37) U/l ALT (0-40) U/l Alkaline Phosphatase (39-117) U/L Total Protein (5.9-8.4) gm/dL Albumin (3.2-5.2) gm/dL Globulin (2.2-3.7) gm/dL Albumin/Globulin Ratio (1.0-2.3) Procalcitonin < 0.05 (<0.10) ng/mL Disposition Pt seen by [facility] SPRING REPAIRER/PA only: Yes Clinical Impression: SOB (shortness of breath), COPD exacerbation, Failure to thrive, Hearing voices, Noncompliance with medication regimen, Noncompliance with treatment regimen, Marijuana use, Tobacco use, Dehydration, Weight loss Disposition: Xfer As Outpt/Obs ([facility]) Condition: Fair Referrals: Vianney Whitehead DNP, COMPUTER SCIENCE INSTRUCTOR [Primary Care Provider] - Time of Disposition: 18:30
[2019-02-17 18:53] LABS: Acetaminophen < 5.0 ug/mL; Salicylate < 0.3 mg/dL
--- NOTE | 2019-02-17 19:12 | Internal Med History&Physical ---
Medical - H&P: HPI Patient information: Note initiated : 02/17/19 at 7:11 pm Service Date, if different from initiated Date: [] Patient: Shwetha Means a 58 y/o M admitted on 02/17/19 for Shortness of breath. Chief Complaint: [] Chief complaint: Shortness of breath History of present illness: Mr. Means is a 58 year old homeless M with a history of schizophrenia who presents to the ER with shortness of breath. However there is a question of induced symptoms due to possibility of getting arrested.(Please refer to the detailed ER report as below). Emergency room report 58-year-old male presents with shortness of breath. Has chronic shortness of breath due to severe COPD but worse the last week or so. There was some question of whether his shortness of breath was related to possibly getting arrested today due to an outstanding warrant however that was never verified. Patient has been here multiple times in the last month. Seems to have failure to thrive and inability to care for himself as well as a lack of being able to make a rational decision. He has not been taking any of his medications for his COPD or his schizophrenia. This seems to have been going on since July. He was consistently seen a primary care provider, Dionne Treadwell, and was somewhat decently managed until he can no dropped off all documentation in July and then reappeared in January 2019. States he has not taken his medication for months but he has no idea what day or time it is. He knows where he is and briefly while he is here but has a hard time making a logical decision. States unknown fever or chills. No nausea, vomiting, or diarrhea. Has not ate or drank in days. States he is been homeless occasionally staying in the hotel but usually living in his truck. Patient has told me he has not eaten or drank anything for at least 3 days. He told the [facility] behavioral health appeals representative that he had a tuna sandwich earlier. When he arrived his mucous membranes were extremely dry, blood pressure of 80/50. This may be's some confusion although hard to differentiate between behavioral issues. He does hear voices. Refuses to take his medications. Although he states he will take him he just cannot get him in this is unclear why. He has been set up by [facility] multiple times for help with medications and primary care as well as housing but cannot seem to follow through with any of it and does not appear to be capable of making a rational decision and that form. He does have a chronic dry cough. About a month ago he was admitted to [facility] and apparently was removed from the facility for smoking marijuana out in the open nurses station. coordinator volunteer services did evaluate him today and they state that he says he would like to go back to [facility] however they will not take him back here at the [facility]. There is a possibility they will take him back at the [facility] but it would be tomorrow before they can do so. States he is homeless living in a vehicle with very limited access to food, water, her money however he does continue to smoke some cigarettes as well as marijuana. He has family including a sister and father in town but states he is not allowed to have anything to do with them. Although he does admit to hearing voices he denies any thoughts of harming himself or others. We do have documentation of the weight back in July 2018 of 194 pounds and today he is 91.4 pounds. At 1700 I did make a call to [facility] intake line to discuss her continued concerns about his failure to thrive, weight loss, generally inability to take care of himself as well as make a rational decision. They state there is nothing they can do emergently but will contact him within 5 days. Someone called back shortly after that to tell us that they would be here at noon tomorrow to evaluate him. However there are concerns that due to his age they cannot intervene unless he has a caregiver or group home type placement that was abusive to him because he does not fall within our guidelines. I did ask [facility] to come evaluate this patient. They do not feel he is eminent danger to himself. They do agree that he cannot necessarily make a rational decisions when it comes to a cause effect type decision making but they state that he is not going to harm himself or others although I have to disagree with this. He has a definite harm to himself as he is not caring for himself, eating, or drinking in the simple fluctuation no more than 100 pound weight loss over the last 6 months indicates so. He has been set up with multiple resources including medication management, housing through [facility], group home placement, and various others. There is question of whether or not there is some manipulative behavior going on and he is not using these resources unless they are beneficial to him at the time versus him truly not understanding the consequences of his actions or also not been able to follow through because he is simply not capable of follow-through and that whole thought process. [facility] states somebody will come and check on him tomorrow. I do have our social service department involved as well. They had no other suggestions from the other than talking to [facility] but they have been in contact with [employer] and there is a possibility that he could go to the [facility] tomorrow or in the next few days possibly but uncertain We did hydrate this patient and he did eat a very large meal. Seems to do be doing better. I did speak with hospitalist, Dr. Landry who agrees to accept this patient. Hospitalist service report Following prolonged ER work-up as above and evaluation including mental health services consult, hospitalist service was consulted for admission until a safe discharge plan can be arranged. No history could be obtained from patient as he remains non cooperative. Review of systems 10 point review of system was attempted but could not performed. Medical - H&P: PMH Medical history: Weight loss (Acute) Tobacco use (Chronic) Subacute dyskinesia due to drug (Chronic) Psychotic disorder with delusions (Chronic) Hepatitis C (Chronic) COPD (chronic obstructive pulmonary disease) (Chronic 10/16/14) Chronic use of opiate drugs therapeutic purposes (Chronic 03/26/13) Asthma (Chronic 07/30/12) Allergic rhinitis (Chronic) Reactive airway disease (Resolved) Pertinent family history: Family History Mother Malignant neoplasm of breast Atherosclerosis of coronary artery Essential hypertension Acute myocardial infarction Social history: Homeless Functional capacity: independent ambulation Smoking status: Former smoker Have you smoked in the last 12 months: No Drug use: marijuana Alcohol use: none Medical - H&P: Meds Home Medications Medication Instructions Recorded Confirmed Type Benztropine [Cogentin] 1 - 2 mg PO DAILYP PRN 04/09/18 02/17/19 History fluPHENAZine DECANOATE 1.5 ml IM Q2W 04/09/18 02/17/19 History [Fluphenazine Decanoate] traZODone HCL [Desyrel] 50 mg PO HS 04/09/18 02/17/19 History Advair 500-50 Diskus 1 puff INH BID 07/01/18 07/01/18 History Tiotropium [place] [Spiriva] 2 puff INH DAILY 07/01/18 02/17/19 History Albuterol Sulfate [Ventolin] 2 puff INHALATION Q6HP PRN #18 g 07/07/18 02/17/19 Rx Calcium Carbonate [Tums] 1,000 mg CHEWED Q4HP PRN tab.chew 07/07/18 02/17/19 Rx Folic Acid 1 mg PO DAILY tablet 07/07/18 02/17/19 Rx Ipratropium/Albuterol [Duoneb] 3 ml NEB Q6HRT ampul.neb 07/07/18 02/17/19 Rx Multivit,Ther Iron,Ca,FA & Min 1 tab PO DAILY tablet 07/07/18 02/17/19 Rx [Multivitamin W/Minerals] predniSONE [Prednisone] 60 mg PO QAMCC #20 tab 07/07/18 02/17/19 Rx lorazepam 0.5 mg tablet 0.5 mg PO TID PRN #30 tab 07/11/18 02/17/19 Rx Allergies Allergy/AdvReac Type Severity Reaction Status Date / Time No Known Drug Allergies Allergy Verified 02/17/19 15:22 Medical - H&P: Exam - Constitutional Vitals: Temp Pulse Resp BP Pulse Ox 98.8 F 95 H 21 94/64 97 02/17/19 15:17 02/17/19 18:20 02/17/19 18:45 02/17/19 18:45 02/17/19 18:20 General appearance: no acute distress Exam: Noncooperative however responding to commands Alert Nonlabored breathing oral cavity dry no ear nose discharge Head normocephalic S1-S2 regular rhythm Diminished breath sounds bases Abdomen soft nontender Lower extremity no cyanosis clubbing no joint swelling Skin no suspicious lesion Psych not cooperative Neuro could not be examined Medical - H&P: Reslt - Labs CBC & Chem 7: 02/17/19 15:39 02/17/19 15:39 Labs: Short CBC 02/17/19 Range/Units 15:39 WBC 8.6 (4.5-11.0) K/mcL Hgb 14.9 (13.5-16.5) g/dL Hct 45.4 (41.0-55.0) % Plt Count 379 (140-440) K/mcL BMP 02/17/19 15:39 Sodium 141 Potassium 4.6 Chloride 101 Carbon Dioxide 27 BUN 25 H Creatinine 0.9 Glucose 98 Calcium 9.0 Liver Function 02/17/19 Range/Units 15:39 Total Bilirubin 0.6 (0.0-1.0) mg/dL AST 21 (0-37) U/l ALT 15 (0-40) U/l Alkaline Phosphatase 88 (39-117) U/L Albumin 4.2 (3.2-5.2) gm/dL Medical - H&P: A/P (1) Weakness Current visit: Yes Status: Acute * Weakness and severe deconditioning with inability to take care of self-c ontinue nutrition support/PT OT. Case management to arrange placement for continued posthospitalization rehab/care * Volume depletion continue crystalloids * COPD exacerbation continue bronchodilators * History of schizophrenia-continue as needed antipsychotic for symptoms. Mental health evaluation in a.m. * Homeless situation-drug abuse social worker consult * Prophylaxis heparin * Full code Plan * Observation admit until safe discharge plan available * Nutrition support/PT OT * Crystalloids bronchodilators/submental oxygen * Case management to arrange safe discharge plan
[2019-02-17] MEDS: 0.9 % SODIUM CHLORIDE 1,000 ML IV SCH (20:00)
--- NOTE | 2019-02-17 20:21 | Emergency Department Note ---
ED Note Addendum Note Addendum: I discussed this case with the mid-level provider and agree with the assessment and plan.
[2019-02-17] MEDS ORDERED: ONDANSETRON 4 MG/2 ML VIAL IV PRN (20:31)
[2019-02-17] MEDS ORDERED: MELATONIN 3 MG TABLET PO PRN (20:31)
[2019-02-17] MEDS ORDERED: guaiFENesin/CODEINE 10 ML UDC PO PRN (20:31)
[2019-02-17] MEDS ORDERED: MAGNESIUM SULFATE 2 GM/50 ML BAG IV PRN (20:31)
[2019-02-17] MEDS ORDERED: POTASSIUM CHLORIDE 20 MEQ PACKET PO PRN (20:31)
[2019-02-17] MEDS ORDERED: ACETAMINOPHEN 325 MG TABLET PO PRN (20:31)
[2019-02-17] MEDS ORDERED: IPRATROPIUM/ALBUTEROL 3 ML AMPUL.NEB NEB SCH (20:31)
[2019-02-17] MEDS: HEPARIN 5,000 UNIT/ML VIAL SQ SCH (22:05)
[2019-02-17] MEDS: SENNOSIDES/DOCUSATE SODIUM 1 TAB TABLET PO SCH (22:07)
[2019-02-17] MEDS: 0.9 % SODIUM CHLORIDE 10 ML SYRINGE IV SCH (22:07)
[2019-02-17] MEDS: DOCUSATE SODIUM 100 MG CAPSULE PO SCH (22:08)
[2019-02-18] MEDS: CYANOCOBALAMIN (VITAMIN B-12) 500 MCG TABLET PO SCH ×3 (00:33→21:55)
[2019-02-18] MEDS: BUDESONIDE 0.5 MG/2 ML AMPUL.NEB NEB SCH ×3 (00:43→19:18)
[2019-02-18] MEDS: IPRATROPIUM/ALBUTEROL 3 ML AMPUL.NEB NEB SCH ×4 (00:44→18:51)
[2019-02-18] MEDS: 0.9 % SODIUM CHLORIDE 1,000 ML IV SCH ×3 (03:02→22:07)
[2019-02-18 05:49] LABS: Hematocrit 40.3 % (41.0-55.0); Hemoglobin 13.2 g/dL (13.5-16.5); Mean Cell Volume 96.4 fL (80.0-100.0); Mean Corpuscular HGB Conc 32.7 g/dL (31.0-36.0); Mean Platelet Volume 7.5 fL (7.4-10.4); Platelet Count 311 K/mcL (140-440); RBC 4.18 M/mcL (4.50-5.90); Red Cell Distribution Width 14.7 % (11.5-14.5); WBC 8.2 K/mcL (4.5-11.0)
[2019-02-18] MEDS: 0.9 % SODIUM CHLORIDE 10 ML SYRINGE IV SCH ×3 (05:53→21:56)
[2019-02-18 06:48] LABS: ALT/SGPT 11 U/l (0-40); AST/SGOT 19 U/l (0-37); Albumin 3.7 gm/dL (3.2-5.2); Albumin/Globulin Ratio 1.9 (1.0-2.3); Alkaline Phosphatase 75 U/L (39-117); Bilirubin,Direct < 0.2 mg/dL (0.0-0.3); Bilirubin,Total 0.5 mg/dL (0.0-1.0); Blood Urea Nitrogen 22 mg/dl (6-20); Calcium 8.3 mg/dl (8.6-10.4); Carbon Dioxide 28 mmol/L (22-30); Chloride 102 mmol/L (96-108); Glomerular Filtration Rate 98; Glucose 89 mg/dL (70-105); Lactate Dehydrogenase 171 U/L (94-250); Magnesium 2.1 mg/dL (1.6-2.5); Phosphorous 3.4 mg/dL (2.7-4.5); Potassium 4.3 mmol/L (3.3-5.1); Sodium 138 mmol/L (133-145); Triglycerides 49 mg/dl (<150); Uric Acid 4.4 mg/dL (2.5-8.0)
[2019-02-18] MEDS: DOCUSATE SODIUM 100 MG CAPSULE PO SCH ×2 (08:22→21:55)
[2019-02-18] MEDS: THIAMINE 100 MG TABLET PO SCH (08:22)
[2019-02-18] MEDS: FOLIC ACID 1 MG TABLET PO SCH (08:22)
[2019-02-18] MEDS: MULTIVIT,THER IRON,CA,FA & MIN 1 TABLET PO SCH (08:22)
[2019-02-18] MEDS: HEPARIN 5,000 UNIT/ML VIAL SQ SCH ×2 (08:23→21:55)
[2019-02-18] MEDS ORDERED: TIOTROPIUM BROMIDE 18 MCG INHALANT INH SCH (09:00)
[2019-02-18 10:00] LABS: Eosinophils % (Manual) 5 % (0-7); Lymphocytes % 22 % (15-49); Monocytes % (Manual) 13 % (1-12); Platelet Estimate NORMAL (NORMAL); RBC Morphology NORMAL (NORMAL); Segmented Neutrophils % 60 % (38-78)
[2019-02-18 15:23] LABS: Appearance,Urine CLEAR; Bacteria,Urine 0 /hpf (0); Bilirubin,Urine NEG (NEG); Color,Urine YELLOW; Culture Indicated,Urine NO; Glucose,Urine (UA) NEGATIVE (NEG); Ketones,Urine 5/TR mg/dL (NEG); Leukocyte Esterase,Urine NEG /uL (NEG); Mucus,Urine MOD /hpf (0); Nitrate,Urine NEG (NEG); Protein,Urine NEG (NEG); Specific Gravity,Urine 1.027 (1.000-1.035); Urine Blood NEG mg/dL (<0.03); Urine Hyaline Cast 2 /lpf (0-2); Urine RBC 1 /hpf (0-1); Urine Squamous Epithelial Cell 0 /hpf (0-4); Urine WBC 2 /hpf (0-4); Urobilinogen,Urine NEG (NEG)
[2019-02-18] MEDS ORDERED: IPRATROPIUM/ALBUTEROL 3 ML AMPUL.NEB NEB PRN (15:32)
[2019-02-18 15:35] LABS: Amphetamine Screen,Urine NONE DETECTED (NONDETECTED); Barbiturate Screen,Urine NONE DETECTED (NONDETECTED); Benzodiazepines Screen,Urine NONE DETECTED (NONDETECTED); Cannabinoid Screen,Urine SUSPECT POSITIVE (NONDETECTED); Cocaine Screen,Urine NONE DETECTED (NONDETECTED); Opiate Screen,Urine NONE DETECTED (NONDETECTED); Oxycodone, Urine Screen NONE DETECTED (NONDETECTED); Phencyclidine Screen,Urine NONE DETECTED (NONDETECTED)
--- NOTE | 2019-02-18 16:12 | Internal Med Progress Note ---
Medical - PN: Subj Patient information: Note initiated : 02/18/19 at 4:08 pm Service Date, if different from initiated Date: [] Patient: Shwetha Means a 58 y/o M admitted on 02/17/19 for Shortness of breath. Chief Complaint: [] Interval history: Mr. Means is a 58 year old homeless M with a history of schizophrenia who presents to the ER with shortness of breath. However there is a question of induced symptoms due to possibility of getting arrested.(Please refer to the detailed ER report as below). Emergency room report 58-year-old male presents with shortness of breath. Has chronic shortness of breath due to severe COPD but worse the last week or so. There was some question of whether his shortness of breath was related to possibly getting arrested today due to an outstanding warrant however that was never verified. Patient has been here multiple times in the last month. Seems to have failure to thrive and inability to care for himself as well as a lack of being able to make a rational decision. He has not been taking any of his medications for his COPD or his schizophrenia. This seems to have been going on since July. He was consistently seen a primary care provider, Dionne Treadwell, and was somewhat decently managed until he can no dropped off all documentation in July and then reappeared in January 2019. States he has not taken his medication for months but he has no idea what day or time it is. He knows where he is and briefly while he is here but has a hard time making a logical decision. States unknown fever or chills. No nausea, vomiting, or diarrhea. Has not ate or drank in days. States he is been homeless occasionally staying in the hotel but usually living in his truck. Patient has told me he has not eaten or drank anything for at least 3 days. [facility] that he had a tuna sandwich earlier. When he arrived his mucous membranes were extremely dry, blood pressure of 80/50. This may be's some confusion although hard to differentiate between behavioral issues. He does hear voices. Refuses to take his medications. Although he states he will take him he just cannot get him in this is unclear why. He has been set up by [facility] multiple times for help with medications and primary care as well as housing but cannot seem to follow through with any of it and does not appear to be capable of making a rational decision and that form. He does have a chronic dry cough. About a month ago he was admitted to [facility] and apparently was removed from the facility for smoking marijuana out in the open nurses station. services advisor did evaluate him today and they state that he says he would like to go back to [facility] however they will not take him back here at the [facility]. There is a possibility they will take him back at the [facility] but it would be tomorrow before they can do so. States he is homeless living in a vehicle with very limited access to food, water, her money however he does continue to smoke some cigarettes as well as marijuana. He has family including a sister and father in town but states he is not allowed to have anything to do with them. Although he does admit to hearing voices he denies any thoughts of harming himself or others. We do have documentation of the weight back in July 2018 of 194 pounds and today he is 91.4 pounds. At 1700 I did make a call to APS intake line to discuss her continued concerns about his failure to thrive, weight loss, generally inability to take care of himself as well as make a rational decision. They state there is nothing they can do emergently but will contact him within 5 days. Someone called back shortly after that to tell us that they would be here at noon tomorrow to evaluate him. However there are concerns that due to his age they cannot intervene unless he has a caregiver or penitentiary type placement that was abusive to him because he does not fall within our guidelines. I did ask [facility] to come evaluate this patient. They do not feel he is eminent danger to himself. They do agree that he cannot necessarily make a rational decisions when it comes to a cause effect type decision making but they state that he is not going to harm himself or others although I have to disagree with this. He has a definite harm to himself as he is not caring for himself, eating, or drinking in the simple fluctuation no more than 100 pound weight loss over the last 6 months indicates so. He has been set up with multiple resources including medication management, housing through [facility], penitentiary placement, and various others. There is question of whether or not there is some manipulative behavior going on and he is not using these resources unless they are beneficial to him at the time versus him truly not understanding the consequences of his actions or also not been able to follow through because he is simply not capable of follow-through and that whole thought process. [facility] states somebody will come and check on him tomorrow. I do have our social service department involved as well. They had no other suggestions from the other than talking to [facility] but they have been in contact with frenting and there is a possibility that he could go to the [facility] tomorrow or in the next few days possibly but uncertain We did hydrate this patient and he did eat a very large meal. Seems to do be doing better. I did speak with hospitalist, Dr. Landry who agrees to accept this patient. Hospitalist service report Following prolonged ER work-up as above and evaluation including mental health services consult, hospitalist service was consulted for admission until a safe discharge plan can be arranged. No history could be obtained from patient as he remains non cooperative. 02/18-patient complains of persistent shortness of breath. On every 4 duo nebs. Tolerating diet. Remains anxious. Evaluated by mental health services. No new developments as per case management. Await discharge planning per case management. - Constitutional Vitals: Vital Signs Temp Pulse Resp BP Pulse Ox 97.9 F 68 20 94/61 96 02/18/19 12:00 02/18/19 15:39 02/18/19 15:39 02/18/19 12:00 02/18/19 12:32 Period Temp Pulse Resp BP Sys/Dugan Pulse Ox Last 24 Hr 97.8 F-98.6 F 68-112 16-25 83-106/55-78 75-99 Intake and Output 02/18/19 02/18/19 02/18/19 05:59 13:59 21:59 Intake Total 472 240 Output Total 0 1000 Balance 472 -760 Weight 95 lb Patient Weight 02/19/19 05:59 Weight 95 lb Intake & Output: Intake & Output 02/18/19 02/18/19 02/18/19 05:59 13:59 21:59 Intake Total 472 240 Output Total 0 1000 Balance 472 -760 Weight 95 lb Intake: IV 352 Sodium Chloride 0.9% 1,000 ml @ 352 50 mls/hr IV .Q20H [facility] Rx#: [id number] Oral 120 240 Output: Urine Catheter Amount 1000 Void Amount 0 Other: Meal Lunch Percent of Meal Consumed 100% Feeding Ability Independent Urine Color Dark Yellow Urine Odor Normal General appearance: moderate distress (SOb) Medical - PN: Obj Da - Labs CBC & Chem 7: 02/18/19 04:15 02/18/19 04:15 Labs: Abnormal Lab Results 02/18/19 02/18/19 02/17/19 04:15 04:15 15:39 RBC 4.18 L Hgb 13.2 L Hct 40.3 L RDW 14.7 H MPV Seg Neutrophils % Lymphocytes % Monocytes % (Manual) 13 H RBC Morphology Anisocytosis BUN 22 H 25 H Calcium 8.3 L Total Protein 5.7 L Globulin 2.0 L Urine Ketones U Marijuana (THC) Screen 02/17/19 02/17/19 02/17/19 15:39 14:32 14:31 RBC Hgb Hct RDW 15.1 H MPV 7.2 L Seg Neutrophils % 87 H Lymphocytes % 6 L Monocytes % (Manual) RBC Morphology Abnorm A Anisocytosis Few A BUN Calcium Total Protein Globulin Urine Ketones 5/tr A U Marijuana (THC) Screen Suspect positive A Meds: Medications Acetaminophen (Tylenol) 650 mg PO Q4-6HP PRN PRN Reason: PAIN/FEVER > 101 Albuterol/Ipratropium (Duoneb) 3 ml NEB Q6HRT [facility] Last Admin: 02/18/19 12:30 Dose: 3 ml Documented by: Albuterol/Ipratropium (Duoneb) 3 ml NEB Q4HP PRN PRN Reason: Shortness Of Breath Last Admin: 02/18/19 15:39 Dose: 3 ml Documented by: Budesonide (Pulmicort) 0.5 mg NEB Q12 [facility] Last Admin: 02/18/19 07:17 Dose: 0.5 mg Documented by: Cyanocobalamin (Vitamin B-12) 1,000 mcg PO BID [facility] Stop: 02/22/19 09:01 Last Admin: 02/18/19 08:22 Dose: 1,000 mcg Documented by: Docusate Sodium (Colace) 100 mg PO BID [facility] Last Admin: 02/18/19 08:22 Dose: 100 mg Documented by: Folic Acid (Folic Acid) 1 mg PO DAILY [facility] Last Admin: 02/18/19 08:22 Dose: 1 mg Documented by: Guaifenesin/Codeine Phosphate (Robitussin Ac) 10 ml PO Q4HP PRN PRN Reason: Cough Heparin Sodium (Porcine) (Heparin) 5,000 unit SQ Q12 [facility] Last Admin: 02/18/19 08:23 Dose: 5,000 unit Documented by: Magnesium Sulfate (Magnesium Sulfate) 2 gm in 50 mls @ 50 mls/hr IV UD PRN PRN Reason: MG = or < 1.7 Sodium Chloride (Sodium Chloride 0.9%) 1,000 mls @ 50 mls/hr IV .Q20H [facility] Stop: 02/20/19 08:30 Last Admin: 02/18/19 03:02 Dose: 50 mls/hr Documented by: Iron Carb/Multivit/Technical Coordinator/Folic Acid (Multivitamin W/Minerals) 1 tab PO DAILY [facility] Last Admin: 02/18/19 08:22 Dose: 1 tab Documented by: Melatonin (Melatonin 3mg Tablet) 3 mg PO HSP PRN PRN Reason: Insomnia Ondansetron HCl (Zofran) 4 mg IV Q4-6HP PRN PRN Reason: Nausea And Vomiting Potassium Chloride (Klor-Con) 40 meq PO DAILYP PRN PRN Reason: K+ < 3.5 Senna/Docusate Sodium (Senna Plus Tablet) 1 tab PO HS [facility] Last Admin: 02/17/19 22:07 Dose: Not Given Documented by: Sodium Chloride (Saline Flush) 10 ml IV Q8 [facility] Last Admin: 02/18/19 14:48 Dose: Not Given Documented by: Thiamine HCl (Vitamin B1) 100 mg PO DAILY [facility] Last Admin: 02/18/19 08:22 Dose: 100 mg Documented by: Medical - PN: A/P - Time Spent With Patient Total time spent is greater than 50% in coordination of care (as documented) at patient's floor/unit and/or counseling patient: 25 - 35 minutes (1) Weakness Status: Acute Assessment and plan: * Weakness and severe deconditioning with inability to take care of self- continue nutrition support/PT OT. Continue placement coordination by case management * Volume depletion-resolved with crystalloids * COPD exacerbation continue bronchodilators/inhaled steroids * History of schizophrenia-continue as needed antipsychotic. Mental health evaluation APS evaluation today * Homeless situation-social service coordinator coordinating safe discharge plan * Prophylaxis heparin * Full code Plan * Continue placement coordination * Bronchodilators/inhaled steroids * Nutrition support/PT OT * Mental health/APS referrals Current Visit: Yes
[2019-02-18] MEDS: SENNOSIDES/DOCUSATE SODIUM 1 TAB TABLET PO SCH (21:55)
[2019-02-19] MEDS: IPRATROPIUM/ALBUTEROL 3 ML AMPUL.NEB NEB SCH ×3 (01:09→13:47)
[2019-02-19 05:38] LABS: Hematocrit 36.3 % (41.0-55.0); Hemoglobin 12.1 g/dL (13.5-16.5); Mean Cell Volume 94.5 fL (80.0-100.0); Mean Corpuscular HGB Conc 33.3 g/dL (31.0-36.0); Mean Platelet Volume 7.3 fL (7.4-10.4); Platelet Count 273 K/mcL (140-440); RBC 3.84 M/mcL (4.50-5.90); Red Cell Distribution Width 13.8 % (11.5-14.5); WBC 8.2 K/mcL (4.5-11.0)
[2019-02-19] MEDS: 0.9 % SODIUM CHLORIDE 10 ML SYRINGE IV SCH ×2 (06:09→14:00)
[2019-02-19 06:10] LABS: ALT/SGPT 9 U/l (0-40); AST/SGOT 17 U/l (0-37); Albumin 3.3 gm/dL (3.2-5.2); Albumin/Globulin Ratio 1.6 (1.0-2.3); Alkaline Phosphatase 66 U/L (39-117); Bilirubin,Direct < 0.2 mg/dL (0.0-0.3); Bilirubin,Total 0.2 mg/dL (0.0-1.0); Blood Urea Nitrogen 14 mg/dl (6-20); Calcium 8.7 mg/dl (8.6-10.4); Carbon Dioxide 29 mmol/L (22-30); Chloride 102 mmol/L (96-108); Globulin 2.1 gm/dL (2.2-3.7); Glomerular Filtration Rate 104; Glucose 110 mg/dL (70-105); Lactate Dehydrogenase 200 U/L (94-250); Magnesium 1.9 mg/dL (1.6-2.5); Phosphorous 3.2 mg/dL (2.7-4.5); Potassium 4.2 mmol/L (3.3-5.1); Sodium 140 mmol/L (133-145); Triglycerides 46 mg/dl (<150); Uric Acid 2.9 mg/dL (2.5-8.0)
[2019-02-19] MEDS: BUDESONIDE 0.5 MG/2 ML AMPUL.NEB NEB SCH (07:26)
[2019-02-19] MEDS: CYANOCOBALAMIN (VITAMIN B-12) 500 MCG TABLET PO SCH (09:15)
[2019-02-19] MEDS: HEPARIN 5,000 UNIT/ML VIAL SQ SCH (09:15)
[2019-02-19] MEDS: THIAMINE 100 MG TABLET PO SCH (09:15)
[2019-02-19] MEDS: MULTIVIT,THER IRON,CA,FA & MIN 1 TABLET PO SCH (09:15)
[2019-02-19] MEDS: DOCUSATE SODIUM 100 MG CAPSULE PO SCH (09:15)
[2019-02-19] MEDS: FOLIC ACID 1 MG TABLET PO SCH (09:16)
[2019-02-19 09:24] LABS: Basophils % (Manual) 1 % (0-2); Eosinophils % (Manual) 9 % (0-7); Lymphocytes % 27 % (15-49); Monocytes % (Manual) 4 % (1-12); Platelet Estimate NORMAL (NORMAL); RBC Morphology NORMAL (NORMAL); Segmented Neutrophils % 59 % (38-78)
[2019-02-19] MEDS: 0.9 % SODIUM CHLORIDE 1,000 ML IV SCH (12:30)
--- NOTE | 2019-02-19 16:55 | Discharge Summary ---
Medical - DS: Prov Patient information: Note initiated : 02/19/19 at 4:52 pm Service Date, if different from initiated Date: [] Patient: Shwetha Means 58 y/o M admitted on 02/17/19 for Shortness of breath. Chief Complaint: [] Date of admission: 02/17/19 18:58 Discharge date: 02/19/19 Primary care physician: Vianney Whitehead Medical - DS: Meds - Discharge Medications Prescriptions: predniSONE [Prednisone] 20 mg PO [facility] #5 tab Active and Home Medications: Home Medications Benztropine [Cogentin] 1 - 2 mg PO DAILYP PRN 04/09/18 [History Confirmed 02/17/19 Last Taken 05/07/18] fluPHENAZine DECANOATE [Fluphenazine Decanoate] 1.5 ml IM Q2W 04/09/18 [History Confirmed 02/17/19 Last Taken Unknown] traZODone HCL [Desyrel] 50 mg PO HS 04/09/18 [History Confirmed 02/17/19 Last Taken Unknown] Advair 500-50 Diskus 1 puff INH BID 07/01/18 [History Confirmed 02/17/19 Last Taken Unknown] Tiotropium [place] [Spiriva] 2 puff INH DAILY 07/01/18 [History Confirmed 02/17/19 Last Taken Unknown] Albuterol Sulfate [Ventolin] 2 puff INHALATION Q6HP PRN #18 g 07/07/18 [Rx Confirmed 02/17/19 Last Taken Unknown] Calcium Carbonate [Tums] 1,000 mg CHEWED Q4HP PRN tab.chew 07/07/18 [Rx Confirmed 02/17/19 Last Taken Unknown] Folic Acid 1 mg PO DAILY tablet 07/07/18 [Rx Confirmed 02/17/19 Last Taken Unknown] Ipratropium/Albuterol [Duoneb] 3 ml NEB Q6HRT ampul.neb 07/07/18 [Rx Confirmed 02/17/19 Last Taken Unknown] Multivit,Ther Iron,Ca,FA & Min [Multivitamin W/Minerals] 1 tab PO DAILY tablet 07/07/18 [Rx Confirmed 02/17/19 Last Taken Unknown] predniSONE [Prednisone] 20 mg PO [facility] #5 tab 02/19/19 [Rx Last Taken Unknown] Medical - DS: Hosp Hospital course: Discharge diagnosis * Weakness and severe deconditioning with inability to take care of self- clinical improvement noted and aggressive therapy/dietary intervention. * Volume depletion-resolved with crystalloids * COPD exacerbation clinically improved on bronchodilators/inhaled steroids. Continue oral prednisone facial 5 days * History of schizophrenia-continue as needed antipsychotic. Mental health evaluation completed. Recommend following up with primary care physician * Homeless situation-medical social consultant unable to find an outpatient facility. Currently discharging to prior living situation. Case management further coordinate outpatient resources include a [facility] Brief hospital course Mr. Means is a 58 year old homeless M with a history of schizophrenia who presents to the ER with shortness of breath. However there is a question of induced symptoms due to possibility of getting arrested.(Please refer to the detailed ER report as below). Emergency room report 58-year-old male presents with shortness of breath. Has chronic shortness of breath due to severe COPD but worse the last week or so. There was some question of whether his shortness of breath was related to possibly getting arrested today due to an outstanding warrant however that was never verified. Patient has been here multiple times in the last month. Seems to have failure to thrive and inability to care for himself as well as a lack of being able to make a rational decision. He has not been taking any of his medications for his COPD or his schizophrenia. This seems to have been going on since July. He was consistently seen a primary care provider, Dionne Treadwell, and was somewhat decently managed until he can no dropped off all documentation in July and then reappeared in January 2019. States he has not taken his medication for months but he has no idea what day or time it is. He knows where he is and briefly while he is here but has a hard time making a logical decision. States unknown fever or chills. No nausea, vomiting, or diarrhea. Has not ate or drank in days. States he is been homeless occasionally staying in the hotel but usually living in his truck. Patient has told me he has not eaten or drank anything for at least 3 days. He told the [facility] behavioral health unit support representative that he had a tuna sandwich earlier. When he arrived his mucous membranes were extremely dry, blood pressure of 80/50. This may be's some confusion although hard to differentiate between behavioral issues. He does hear voices. Refuses to take his medications. Although he states he will take him he just cannot get him in this is unclear why. He has been set up by [facility] multiple times for help with medications and primary care as well as housing but cannot seem to follow through with any of it and does not appear to be capable of making a rational decision and that form. He does have a chronic dry cough. About a month ago he was admitted to [facility] and apparently was removed from the facility for smoking marijuana out in the open nurses station. environmental services supervisor did evaluate him today and they state that he says he would like to go back to [facility] however they will not take him back here at the [facility]. There is a possibility they will take him back at the [facility] but it would be tomorrow before they can do so. States he is homeless living in a vehicle with very limited access to food, water, her money however he does continue to smoke some cigarettes as well as marijuana. He has family including a sister and father in town but states he is not allowed to have anything to do with them. Although he does admit to hearing voices he denies any thoughts of harming himself or others. We do have documentation of the weight back in July 2018 of 194 pounds and today he is 91.4 pounds. At 1700 I did make a call to APS intake line to discuss her continued concerns about his failure to thrive, weight loss, generally inability to take care of himself as well as make a rational decision. They state there is nothing they can do emergently but will contact him within 5 days. Someone called back shortly after that to tell us that they would be here at noon tomorrow to evaluate him. However there are concerns that due to his age they cannot intervene unless he has a caregiver or residential type placement that was abusive to him because he does not fall within our guidelines. I did ask [facility] to come evaluate this patient. They do not feel he is eminent danger to himself. They do agree that he cannot necessarily make a rational decisions when it comes to a cause effect type decision making but they state that he is not going to harm himself or others although I have to disagree with this. He has a definite harm to himself as he is not caring for himself, eating, or drinking in the simple fluctuation no more than 100 pound weight loss over the last 6 months indicates so. He has been set up with multiple resources including medication management, housing through [facility], residential placement, and various others. There is question of whether or not there is some manipulative behavior going on and he is not using these resources unless they are beneficial to him at the time versus him truly not understanding the consequences of his actions or also not been able to follow through because he is simply not capable of follow-through and that whole thought process. [facility] states somebody will come and check on him tomorrow. I do have our social service department involved as well. They had no other suggestions from the other than talking to [facility] but they have been in contact with [facility] and there is a possibility that he could go to the [facility] tomorrow or in the next few days possibly but uncertain We did hydrate this patient and he did eat a very large meal. Seems to do be doing better. I did speak with hospitalist, Dr. Landry who agrees to accept this patient. Hospitalist service report Following prolonged ER work-up as above and evaluation including mental health services consult, hospitalist service was consulted for admission until a safe discharge plan can be arranged. No history could be obtained from patient as he remains non cooperative. 02/18-patient complains of persistent shortness of breath. On every 4 duo nebs. Tolerating diet. Remains anxious. Evaluated by mental health services. No new developments as per case management. Await discharge planning per case management. 02/19-after extensive efforts from case management patient unable to be placed at [facility] or care facility. Discharging in stable state. Case management coordinating outpatient resources for [facility] in the interim. Advised to follow-up with primary care physician and continue medications for COPD. Continue oral prednisone for additional 5 days. Advised to refrain from smoking and alcohol. Discharge instructions as below Discharge diagnosis: . - Time Spent with Patient Total time spent providing and/or coordinating discharge services: Greater than 30 minutes Medical - DS: Exam - Constitutional Vitals: Vital Signs Temp Pulse Pulse Resp BP BP Pulse Ox 02/19/19 13:48 88 20 02/19/19 09:15 87 22 88 L 02/19/19 07:27 85 20 92 02/19/19 04:43 98.6 F 77 20 106/67 94 02/19/19 01:42 98.2 F 85 22 91/61 95 02/19/19 01:26 85 24 H 02/18/19 19:07 97.3 F 73 24 H 96/58 97 02/18/19 18:54 68 20 Intake and Output 02/19/19 02/19/19 02/19/19 05:59 13:59 21:59 Intake Total 1144 870 Balance 1144 870 Intake: Nourishment/Supplement quantity 0 (ml) IV 1144 Sodium Chloride 0.9% 1,000 ml @ 1144 50 mls/hr IV .Q20H [facility] Rx#: [id number] Oral 870 Other: Meal Breakfast Percent of Meal Consumed 75% Feeding Ability Independent Medical - DS: Data Labs on day of discharge: Labs from last 24 hours 02/19/19 02/19/19 04:15 04:15 WBC 8.2 RBC 3.84 L Hgb 12.1 L Hct 36.3 L MCV 94.5 MCH 31.4 MCHC 33.3 RDW 13.8 Plt Count 273 MPV 7.3 L Total Counted 100 Seg Neutrophils % 59 Band Neutrophils % Not Reportable Lymphocytes % 27 Monocytes % (Manual) 4 Eosinophils % (Manual) 9 H Basophils % (Manual) 1 Platelet Estimate Normal RBC Morphology Normal Sodium 140 Potassium 4.2 Chloride 102 Carbon Dioxide 29 Anion Gap 9.0 BUN 14 Creatinine 0.7 GFR Calculation 104 Glucose 110 H Uric Acid 2.9 Calcium 8.7 Phosphorus 3.2 Magnesium 1.9 Total Bilirubin 0.2 Direct Bilirubin < 0.2 GGT 8 AST 17 ALT 9 Alkaline Phosphatase 66 Lactate Dehydrogenase 200 Total Protein 5.4 L Albumin 3.3 Globulin 2.1 L Albumin/Globulin Ratio 1.6 Triglycerides 46 Preliminary micro results at discharge 02/17/19 15:44 Blood Culture - Preliminary Blood 02/17/19 15:39 Blood Culture - Preliminary Blood Medical - DS: A/P - Patient/Caregiver Discharge Instructions Activity: increase activity as tolerated, resume usual activities as tolerated Diet: Regular Diet Additional Instructions: Follow-up PCP in 5 days Refrain from smoking and alcohol Continue diet and activity as advised Discussed importance of medication adherence Please review medication list with patient prior to discharge Please schedule follow-up with PCP/Providers prior to discharge and provide printouts Prescriptions: predniSONE [Prednisone] 20 mg PO [facility] #5 tab - Problem Maintenance (1) Weakness Status: Acute - Follow up Plan Follow up with: Vianney Whitehead DNP, DIRECTOR OF TESTING [Primary Care Provider] - Disposition: Home, Self-Care Prognosis: Fair Rehab Potential: Fair I certify that the patient requires SNF services: No Overall status at discharge: patient is progressing back to baseline
[2019-02-23 12:52] LABS: Cannabinoid Confirmation POSITIVE (N)
[2019-03-03] MEDS ORDERED: FLUPHENAZINE DECANOATE IM SCH (09:00)
== END 2019-02-19 18:10 | disposition home or self-care (01) ==
LOC: ED 15:17 → MEDSUR 15:17
PROVIDERS: ADMIT Internal Medicine; ATTEND Internal Medicine